=== PATIENT | male | born 1995 | race Caucasian/White ===

== ENCOUNTER 2017-05-17 01:14 | Emergency (ER) | payer BC ==
[~2017-05-17] VITALS: Ht 185.4 cm; Wt 76.0 kg
[~2017-05-17 01:14] MED LIST: METO25TA56 PO
[2017-05-17 01:34] VITALS: Ht 185.4 cm; Wt 76.0 kg
[2017-05-17] MEDS ORDERED: SODIUM CHLORIDE 0.9% 1000ML 1,000 ML IV STA (01:51)
[2017-05-17 02:06] LABS: HEMATOCRIT 45.1 % (42-52); MEAN CELL VOLUME 81.7 fL (80-100); MEAN CORPUSCULAR HEMOGLOBIN 29.9 pg (25-34); MEAN CORPUSCULAR HGB CONC 36.6 g/dl (32-36); MEAN PLATELET VOLUME 10.3 fL (7.4-10.4); PLATELET COUNT 241 K/uL (130-400); RED BLOOD COUNT 5.52 M/uL (4.7-6.1); WHITE BLOOD COUNT 7.08 K/uL (4.8-10.8)
[2017-05-17 02:15] LABS: BENZODIAZEPINE, URINE NEG (NEG); COCAINE,URINE NEG (NEG); PHENCYCLIDINE, URINE NEG (NEG)
[2017-05-17 02:25] LABS: BUN/CREATININE RATIO 15.5 (10-20); CALCIUM 9.3 mg/dl (8.5-10.1); CREATININE 1.2 mg/dl (0.60-1.40); POTASSIUM 3.6 mmol/L (3.5-5.1)
[2017-05-17 02:35] LABS: THYROID STIMULATING HORMONE 1.75 uIu/ml (0.300-4.500)
[2017-05-17] MEDS ORDERED: CLON1TAB3 PO (02:41)
[2017-05-17] MEDS ORDERED: PARO1TAB27 PO (02:41)
[2017-05-17 02:50] LABS: ACETAMINOPHEN < 2 ug/ml (10-30)
[2017-05-17] MEDS ORDERED: NICOTINE 14 MG/24 HR TDSY ONE (03:19)
[2017-05-17] MEDS ORDERED: hydrOXYzine HCL 25 MG TAB PO STA (03:42)
--- NOTE | 2017-05-17 06:28 | EMERGENCY ROOM VISIT NOTE ---
History Report prepared by Branden: Lottie Kim Under the Supervision of: Dr. Vinita Rios D.O. First contact with patient: 01:36 Chief Complaint: MENTAL HEALTH EVALUATION Stated Complaint: DEPRESSION,MED CHANGE History of Present Illness The patient is a 22 year old male who presents to the Emergency Room with complaints of worsening depression starting yesterday. The patient has a history of depression and anxiety. He was switched from Ativan to Clonazepam 5 days ago when he saw his psychiatrist. He has been feeling more depressed since then. He has been staying in bed and not eating and drinking. Yesterday, he was thinking about suicide. He had a plan to overdose on clonazepam. He also had similar thoughts today. He has not had thoughts of killing himself before. He spoke with his parents who recommended he come to the ED. His mother had a history of depression and anxiety when she was a teenager. He denies any alcohol or drug use. No events occurred which caused his depression to worsen. He reports feeling out of body, where he feels like he is floating and watching things happen. He denies any auditory or visual hallucinations. He denies any vomiting, abdominal pain, urinary symptoms, or change in bowel movement. He has never had inpatient psychiatric care before. He is currently willing to receive inpatient care. He is a [employer] student. Source of History: patient, parent Onset: yesterday Position: other (mental health) Quality: other (depression) Timing: worsening Associated Symptoms: No vomiting, No abdominal pain, No urinary symptoms Note: Pt reports suicidal ideation, feeling out of body. Pt denies hallucination. Review of Systems See HPI for pertinent positives & negatives. A total of 10 systems reviewed and were otherwise negative. Past Medical & Surgical Medical Problems: (1) Anxiety (2) Depression Family History Depression Social History Smoking Status: Former Smoker Drug Use: none Marital Status: single Occupation Status: [employer] student Current/Historical Medications Scheduled Clonazepam (Klonopin), 1 MG PO BID Paroxetine (Paxil), 20 MG PO DAILY Allergies Coded Allergies: No Known Allergies (Unverified , 09/11/15) Physical Exam Vital Signs Date Time Temp Pulse Resp B/P (MAP) Pulse Ox O2 Delivery O2 Flow Rate FiO2 05/17/17 02:41 70 16 109/67 97 Room Air 05/17/17 01:34 36.6 107 16 131/83 97 Room Air Physical Exam HEENT: Head - normocephalic and atraumatic Pupils are equal, round, and reactive to light. Extraocular eye muscles are intact, and sclera are anicteric. Nose - moist nasal mucosa without discharge. Mouth - moist buccal mucosa. Oropharynx is nonerythematous and there is no tonsillar exudate or edema noted. Neck: Supple; no JVD, nuchal rigidity, cervical lymphadenopathy. Heart: Regular rate and rhythm. There is a normal S1 and S2 with no murmurs, clicks, or gallops appreciated. Lungs: Clear to auscultation bilaterally with no wheezes, rales, or rhonchi. Abdomen: Soft, completely nontender, nondistended, with good bowel sounds. There are no palpable pulsatile masses or hepatosplenomegaly. There is no guarding, rigidity, or rebound noted. Extremities: No evidence of cyanosis, clubbing, or edema. There are easily palpable peripheral pulses. Skin: warm and dry with good turgor and no rashes. Psych: Flat affect, admits to suicidal ideation with a plan to overdose. Medical Decision & Procedures Laboratory Results 05/17/17 01:53 05/17/17 01:53 Test 05/17/17 01:45 05/17/17 01:53 Urine Opiates Screen NEG (NEG) Urine Methadone, Qualitative NEG (NEG) Urine Barbiturates NEG (NEG) Urine Phencyclidine (PCP) Level NEG (NEG) Ur Amphetamine/Methamphetamine NEG (NEG) MDMA (Ecstasy) Screen NEG (NEG) Urine Benzodiazepines Screen NEG (NEG) Urine Cocaine Metabolite NEG (NEG) Urine Marijuana (THC) NEG (NEG) Red Blood Count 5.52 M/uL (4.7-6.1) Mean Corpuscular Volume 81.7 fL (80-100) Mean Corpuscular Hemoglobin 29.9 pg (25-34) Mean Corpuscular Hemoglobin Concent 36.6 g/dl (32-36) RDW Standard Deviation 35.5 fL (36.4-46.3) RDW Coefficient of Variation 12.0 % (11.5-14.5) Mean Platelet Volume 10.3 fL (7.4-10.4) Anion Gap 11.0 mmol/L (3-11) Est Creatinine Clear Calc Drug Dose 105.6 ml/min Estimated GFR () 100.3 Estimated GFR (Non- 86.5 BUN/Creatinine Ratio 15.5 (10-20) Calcium Level 9.3 mg/dl (8.5-10.1) Thyroid Stimulating Hormone (TSH) 1.750 uIu/ml (0.300-4.500) Salicylates Level < 1.7 mg/dl (2.8-20) Acetaminophen Level < 2 ug/ml (10-30) Ethyl Alcohol mg/dL < 3.0 mg/dl (0-3) Laboratory results per my review. Medications Administered Medications (Trade) Dose Ordered Sig/Jennifer Route Start Time Stop Time Status Last Admin Dose Admin Sodium Chloride 1,000 ml @ 999 mls/hr Q1H1M STAT IV 05/17/17 01:51 05/17/17 02:51 DC 05/17/17 01:57 999 MLS/HR Nicotine (Nicoderm Cq 14MG Patch) 1 patch STK-MED ONCE .ROUTE 05/17/17 03:19 05/17/17 03:20 DC 05/17/17 03:19 1 PATCH Hydroxyzine HCl (Vistaril Tab) 25 mg NOW STAT PO 05/17/17 03:42 05/17/17 03:43 DC 05/17/17 03:42 25 MG Procedure Medications: NSS 1000 ml @ 999 mls/hr IV, Nicotine 1 patch TOP, Vistaril Tab 25 mg PO. ED Course 0144: The patient was evaluated in room A7. A complete history and physical examination were performed. Nursing notes and previous electronic medical records were reviewed. IV lock was established and labs were drawn as above. 0151: NSS 1000 ml @ 999 mls/hr IV. 0319: Nicotine 1 patch TOP. 0320: 3 [facility] is evaluating the patient. 0341: The 201 has been signed. 0342: Vistaril Tab 25 mg PO for anxiety. 0410: The patient has been referred to the [facility]. 0515: The patient has been accepted to the [facility]. Transport will come to pick him up at 0830. Medical Decision The patient is a 22 year old male who presents to the ED with depression. Differential diagnosis includes mood disorder, thought disorder, suicidal ideation, dehydration, malnutrition. I attest that I have personally reviewed the patient's current medication list. Patient was found to have normal blood pressure on screening and does not require follow-up. Labs: normal WBC, normal H&H, normal TSH and glucose, normal renal function, negative tox screen, negative alcohol, negative Tylenol and aspirin. The patient presents to the emergency department with suicidal plan to overdose. The parents state that he has not been functioning for the past couple of days. He does not eat or drink. The patient showed no significant signs of dehydration, however he was given 1 L of IV normal saline solution. He was willing to admit himself voluntarily for inpatient psychiatric care. He' s never had a previous admission. Impression Primary Impression: Suicidal ideation Scribe Attestation The scribe's documentation has been prepared under my direction and personally reviewed by me in its entirety. I confirm that the note above accurately reflects all work, treatment, procedures, and medical decision making performed by me. Departure Information Dispostion Transfer Acute Care Facility Referrals Devyn Webb D.O. (PCP) Patient Instructions My [facility]
[2017-05-17 07:38] VITALS: TEMP 36.6
[2017-05-17] MEDS ORDERED: PAROXETINE 20 MG TAB PO ONE (08:00)
[2017-05-17 08:57] VITALS: BP 123/67; PULSE 69; O2SAT 95
[2017-05-17] MEDS ORDERED: NICOTINE 14 MG/24 HR TDSY TD SCH (09:00)
== END 2017-05-17 08:59 ==
LOC: C.EDB 01:16 → C.EDA 08:59
DX: R45.851 Suicidal ideations (principal); F32.9 Major depressive disorder, single episode, unspecified; F41.9 Anxiety disorder, unspecified; Z87.891 Personal history of nicotine dependence; Z79.899 Other long term (current) drug therapy

== ENCOUNTER → 2017-05-31 | Outpatient (CLI) | payer BC ==
[~2017-05-31] MED LIST changes: +ATV/1 PO; +CLON1TAB3 PO; +CTP/1 PO; +DIVA250T PO; +DPKSR/500 PO; +GABA1CAP PO; -METO25TA56 PO; +PARO1TAB27 PO; +SERT1TAB68 PO; +SERT50TA PO
[2017-05-31 09:03] LABS: BASO % 0.3 %; BASO ABS # 0.02 K/uL (0-0.2); COMPLETE YES; EOS % 5.7 %; HEMATOCRIT 48.1 % (42-52); IG% 0.3 %; LYMPH ABS # 1.32 K/uL (1.2-3.4); MEAN CELL VOLUME 85.9 fL (80-100); MEAN CORPUSCULAR HEMOGLOBIN 29.1 pg (25-34); MEAN CORPUSCULAR HGB CONC 33.9 g/dl (32-36); MEAN PLATELET VOLUME 10.9 fL (7.4-10.4); MONO % 9.7 %; PLATELET COUNT 221 K/uL (130-400)
== END | disposition home or self-care (01) ==
LOC: C.LAB 07:46
PROVIDERS: ATTEND Psychiatry & Neurology Psychiatry
DX: F41.0 Panic disorder [episodic paroxysmal anxiety] (principal); F32.9 Major depressive disorder, single episode, unspecified; Z51.81 Encounter for therapeutic drug level monitoring; Z79.899 Other long term (current) drug therapy

== ENCOUNTER → 2017-06-25 | Outpatient (CLI) | payer BC ==
[2017-06-25 09:37] LABS: BASO % 0.5 %; BASO ABS # 0.02 K/uL (0-0.2); COMPLETE YES; EOS % 11.6 %; HEMATOCRIT 43.8 % (42-52); IG% 0.3 %; LYMPH % 38.4 %; LYMPH ABS # 1.53 K/uL (1.2-3.4); MEAN CELL VOLUME 85.2 fL (80-100); MEAN CORPUSCULAR HEMOGLOBIN 30.4 pg (25-34); MEAN CORPUSCULAR HGB CONC 35.6 g/dl (32-36); MEAN PLATELET VOLUME 11.5 fL (7.4-10.4); NEUT % 40.2 %; PLATELET COUNT 178 K/uL (130-400); RED BLOOD COUNT 5.14 M/uL (4.7-6.1); WHITE BLOOD COUNT 3.98 K/uL (4.8-10.8)
[2017-06-25 10:15] LABS: ALT/SGPT 17 U/L (12-78); AST/SGOT 14 U/L (15-37); BLOOD UREA NITROGEN 14 mg/dl (7-18); BUN/CREATININE RATIO 12.7 (10-20); CALCIUM 9.2 mg/dl (8.5-10.1); CARBON DIOXIDE 32 mmol/L (21-32); CHLORIDE 105 mmol/L (98-107); CHOLESTEROL 142 mg/dl (0-200); GLUCOSE 85 mg/dl (70-99); POTASSIUM 3.8 mmol/L (3.5-5.1); SODIUM 139 mmol/L (136-145); TRIGLYCERIDES 86 mg/dl (0-150); VERY LOW DENSITY LIPOPROT CALC 17 mg/dl
[2017-06-25 10:27] LABS: ALB/GLOB RATIO 1.2 (0.9-2); ALKALINE PHOSPHATASE 66 U/L (45-117); CHOLESTEROL/HDL RATIO 3.6; HDL CHOLESTEROL 40 mg/dl; LDL CHOLESTEROL CALCULATED 85 mg/dl; THYROID STIMULATING HORMONE 0.932 uIu/ml (0.300-4.500)
[2017-06-25 10:41] LABS: ESTIMATED AVERAGE GLUCOSE 94 mg/dl; HA1C FLAG Normal (Normal)
== END | disposition home or self-care (01) ==
LOC: C.LAB 07:54
PROVIDERS: ATTEND Physician Assistant
DX: Z79.899 Other long term (current) drug therapy (principal)

== ENCOUNTER 2017-07-28 10:52 | Inpatient (IN) | payer BC ==
[~2017-07-28] VITALS: Ht 188 cm; Wt 79.6 kg
[~2017-07-28 10:52] MED LIST changes: -ATV/1 PO; -CTP/1 PO; -DIVA250T PO; -DPKSR/500 PO; -GABA1CAP PO; -SERT1TAB68 PO; -SERT50TA PO
[2017-07-28 11:45] LABS: URINE APPEARANCE CLEAR (CLEAR); URINE BILIRUBIN NEG (NEG); URINE COLOR DK YELLOW; URINE NITRITE NEG (NEG); URINE SPECIFIC GRAVITY 1.025 (1.000-1.030); UROBILINOGEN POS (NEG); ZZUR CULT IF INDIC CLEAN CATCH NO
[2017-07-28 11:46] LABS: MANUAL MICROSCOPIC REQUIRED? NO; REVIEW REQ? NO
[2017-07-28] MEDS ORDERED: DPKSR/500 PO (11:51)
[2017-07-28] MEDS ORDERED: ATV/1 PO (11:51)
[2017-07-28] MEDS ORDERED: GABA1CAP PO (11:51)
[2017-07-28] MEDS ORDERED: CTP/1 PO (11:51)
[2017-07-28] MEDS ORDERED: SERT50TA PO (11:51)
[2017-07-28 12:12] LABS: BENZODIAZEPINE, URINE NEG (NEG); COCAINE,URINE NEG (NEG); PHENCYCLIDINE, URINE NEG (NEG)
[2017-07-28] MEDS ORDERED: NICOTINE 14 MG/24 HR TDSY ONE (12:39)
[2017-07-28] MEDS ORDERED: NURSING VERBAL MED ORDER ONE ×3 (12:45→21:45)
[2017-07-28 12:52] LABS: BASO % 0.9 %; BASO ABS # 0.03 K/uL (0-0.2); COMPLETE YES; EOS % 4.9 %; HEMATOCRIT 46.3 % (42-52); IG% 0.3 %; LYMPH % 25.5 %; LYMPH ABS # 0.89 K/uL (1.2-3.4); MEAN CELL VOLUME 86.1 fL (80-100); MEAN CORPUSCULAR HEMOGLOBIN 29.4 pg (25-34); MEAN CORPUSCULAR HGB CONC 34.1 g/dl (32-36); MEAN PLATELET VOLUME 10.6 fL (7.4-10.4); NEUT % 60.4 %; PLATELET COUNT 218 K/uL (130-400); RED BLOOD COUNT 5.38 M/uL (4.7-6.1); WHITE BLOOD COUNT 3.49 K/uL (4.8-10.8)
[2017-07-28 13:19] LABS: ACETAMINOPHEN < 2 ug/ml (10-30)
--- NOTE | 2017-07-28 13:21 | EMERGENCY ROOM VISIT NOTE ---
History Report prepared by Branden: Lottie Kim Under the Supervision of: Dr. Immanuel Martínez M.D. First contact with patient: 11:32 Chief Complaint: MENTAL HEALTH EVALUATION Stated Complaint: SUICIDAL IDEATIONS History of Present Illness The patient is a 22 year old male who presents to the Emergency Room with complaints of worsening suicidal ideation starting yesterday. The patient has a history of suicidal ideation and has overdosed in the past. He has had inpatient psychiatric care before. Over the past day, he has had more thoughts of hurting himself. He is also hearing voices. He hears a whisper, but cannot make out any words. He currently does not have a plan to harm himself. He notes some cough, congestion, and left abdominal pain. He denies any fever, chills, nausea, vomiting, diarrhea, back pain, or urinary symptoms. He denies any recent changes in medication. Source of History: patient Onset: yesterday Position: other (mental health) Quality: other (suicidal ideation) Timing: worsening Associated Symptoms: + cough, + abdominal pain, No fevers, No chills, No nausea, No vomiting, No back pain, No diarrhea, No urinary symptoms Note: Pt reports congestion. Review of Systems See HPI for pertinent positives and negatives. A total of ten systems were reviewed and were otherwise negative. Past Medical & Surgical Medical Problems: (1) Anxiety (2) Depression (3) Suicidal ideation Family History Depression Social History Smoking Status: Current Every Day Smoker Drug Use: none Marital Status: single Occupation Status: [employer] student Current/Historical Medications Scheduled Clonidine Hcl (Catapres), 0.5 TAB PO BID Divalproex Sodium (Depakote Etended-Release), 500 MG PO BID Gabapentin (Neurontin), 100 MG PO TID Sertraline Hcl (Zoloft), 75 MG PO DAILY Scheduled PRN Lorazepam (Ativan), 1 MG PO DAILY PRN for Anxiety Allergies Coded Allergies: No Known Allergies (Unverified , 07/28/17) Physical Exam Vital Signs Date Time Temp Pulse Resp B/P (MAP) Pulse Ox O2 Delivery O2 Flow Rate FiO2 07/28/17 12:42 93 16 146/74 98 Room Air 07/28/17 10:56 36.8 118 20 125/76 96 Room Air Physical Exam GENERAL: Awake, alert, well-appearing, in no distress HENT: Normocephalic, atraumatic. Oropharynx unremarkable. EYES: Normal conjunctiva. Sclera non-icteric. NECK: Supple. No nuchal rigidity. FROM. No JVD. RESPIRATORY: Clear to auscultation. CARDIAC: Regular rate, normal rhythm. Extremities warm and well perfused. Pulses equal. ABDOMEN: Soft, non-distended. No tenderness to palpation. No rebound or guarding. No masses. RECTAL: Deferred. MUSCULOSKELETAL: Chest examination reveals no tenderness. The back is symmetrical on inspection without obvious abnormality. There is no CVA tenderness to palpation. No joint edema. LOWER EXTREMITIES: Calves are equal size bilaterally and non-tender. No edema. No discoloration. NEURO: Normal sensorium. No sensory or motor deficits noted. SKIN: No rash or jaundice noted. Medical Decision & Procedures Laboratory Results 07/28/17 12:07 Red Blood Count 5.38, Mean Corpuscular Volume 86.1, Mean Corpuscular Hemoglobin 29.4, Mean Corpuscular Hemoglobin Concent 34.1, Mean Platelet Volume 10.6, Neutrophils (%) (Auto) 60.4, Lymphocytes (%) (Auto) 25.5, Monocytes (%) (Auto) 8.0, Eosinophils (%) (Auto) 4.9, Basophils (%) (Auto) 0.9, Neutrophils # (Auto) 2.11, Lymphocytes # (Auto) 0.89, Monocytes # (Auto) 0.28, Eosinophils # (Auto) 0.17, Basophils # (Auto) 0.03 07/28/17 12:07 Test 07/28/17 11:16 07/28/17 12:07 Urine Color DK YELLOW Urine Appearance CLEAR (CLEAR) Urine pH 7.0 (4.5-7.5) Urine Specific [place] 1.025 (1.000-1.030) Urine Protein NEG (NEG) Urine Glucose (UA) NEG (NEG) Urine Ketones TRACE (NEG) Urine Occult Blood NEG (NEG) Urine Nitrite NEG (NEG) Urine Bilirubin NEG (NEG) Urine Urobilinogen POS (NEG) Urine Leukocyte Esterase NEG (NEG) Urine Opiates Screen NEG (NEG) Urine Methadone, Qualitative NEG (NEG) Urine Barbiturates NEG (NEG) Urine Phencyclidine (PCP) Level NEG (NEG) Ur Amphetamine/Methamphetamine NEG (NEG) MDMA (Ecstasy) Screen NEG (NEG) Urine Benzodiazepines Screen NEG (NEG) Urine Cocaine Metabolite NEG (NEG) Urine Marijuana (THC) NEG (NEG) White Blood Count 3.49 K/uL (4.8-10.8) Red Blood Count 5.38 M/uL (4.7-6.1) Hemoglobin 15.8 g/dL (14.0-18.0) Hematocrit 46.3 % (42-52) Mean Corpuscular Volume 86.1 fL (80-100) Mean Corpuscular Hemoglobin 29.4 pg (25-34) Mean Corpuscular Hemoglobin Concent 34.1 g/dl (32-36) Platelet Count 218 K/uL (130-400) Mean Platelet Volume 10.6 fL (7.4-10.4) Neutrophils (%) (Auto) 60.4 % Lymphocytes (%) (Auto) 25.5 % Monocytes (%) (Auto) 8.0 % Eosinophils (%) (Auto) 4.9 % Basophils (%) (Auto) 0.9 % Neutrophils # (Auto) 2.11 K/uL (1.4-6.5) Lymphocytes # (Auto) 0.89 K/uL (1.2-3.4) Monocytes # (Auto) 0.28 K/uL (0.11-0.59) Eosinophils # (Auto) 0.17 K/uL (0-0.5) Basophils # (Auto) 0.03 K/uL (0-0.2) RDW Standard Deviation 38.9 fL (36.4-46.3) RDW Coefficient of Variation 12.5 % (11.5-14.5) Immature Granulocyte % (Auto) 0.3 % Immature Granulocyte # (Auto) 0.01 K/uL (0.00-0.02) Anion Gap 8.0 mmol/L (3-11) Est Creatinine Clear Calc Drug Dose 136.2 ml/min Estimated GFR () 125.0 Estimated GFR (Non- 107.9 BUN/Creatinine Ratio 15.8 (10-20) Calcium Level 9.2 mg/dl (8.5-10.1) Total Bilirubin 0.9 mg/dl (0.2-1) Aspartate Amino Transf (AST/SGOT) 11 U/L (15-37) Alanine Aminotransferase (ALT/SGPT) 14 U/L (12-78) Alkaline Phosphatase 72 U/L (45-117) Total Protein 7.4 gm/dl (6.4-8.2) Albumin 4.1 gm/dl (3.4-5.0) Globulin 3.3 gm/dl (2.5-4.0) Albumin/Globulin Ratio 1.2 (0.9-2) Thyroid Stimulating Hormone (TSH) 0.872 uIu/ml (0.300-4.500) Salicylates Level < 1.7 mg/dl (2.8-20) Acetaminophen Level < 2 ug/ml (10-30) Valproic Acid (Depakene) Level 59 mcg/ml (50-100) Ethyl Alcohol mg/dL < 3.0 mg/dl (0-3) Laboratory results reviewed by me Medications Administered Medications (Trade) Dose Ordered Sig/Jennifer Route Start Time Stop Time Status Last Admin Dose Admin Nicotine (Nicoderm Cq 14MG Patch) 1 patch STK-MED ONCE .ROUTE 07/28/17 12:39 07/28/17 12:40 DC 07/28/17 12:44 1 PATCH Hydroxyzine HCl (Vistaril Tab) 50 mg HSZ PRN PO 07/28/17 14:45 08/27/17 14:44 07/28/17 23:31 50 MG ED Course 1151: The patient was evaluated in room A5. A complete history and physical exam was performed. 1239: Nicoderm 14 mg 1 patch TD. 1353: The patient has been medically cleared. The psych case preparer and liner will evaluate the patient. 1524: The patient has been accepted to [address] [place] [address] for further management. Medical Decision I reviewed the patient's past medical history, medications, and the nursing notes as described above. Differential diagnosis: suicidal ideation, psychosis, dehydration, medication adverse effect. Patient is a 22-year-old gentleman with a past medical history of suicidal ideation and bipolar disorder is to emergency department with worsening suicidal ideation for the past 2 weeks per history of present illness. Arrives with father at bedside. Seeking help voluntarily. Denies any attempts at self- harm. Denies any drug use or alcohol use. On arrival the patient is in no acute distress, afebrile stable vital signs. Exam is unremarkable. Labs otherwise unremarkable. He was medically cleared evaluate by the psychiatric liaison who referred the patient for admission and was accepted to . Medication Reconcilliation Current Medication List: was personally reviewed by me Blood Pressure Screening Patient's blood pressure: Normal blood pressure Blood pressure disposition: Did not require urgent referral Impression Primary Impression: Suicidal ideation Scribe Attestation The scribe's documentation has been prepared under my direction and personally reviewed by me in its entirety. I confirm that the note above accurately reflects all work, treatment, procedures, and medical decision making performed by me. Departure Information Dispostion Mental Health Acute Care Referrals Devyn Webb, Gopi.O. (PCP) Forms HOME CARE DOCUMENTATION FORM, IMPORTANT VISIT INFORMATION Patient Instructions My [facility]
[2017-07-28 13:26] LABS: ALB/GLOB RATIO 1.2 (0.9-2); BUN/CREATININE RATIO 15.8 (10-20); CALCIUM 9.2 mg/dl (8.5-10.1); POTASSIUM 4.1 mmol/L (3.5-5.1)
[2017-07-28 13:38] LABS: THYROID STIMULATING HORMONE 0.872 uIu/ml (0.300-4.500)
[2017-07-28] MEDS ORDERED: ACETAMINOPHEN 325 MG TAB PO PRN (14:45)
[2017-07-28] MEDS ORDERED: hydrOXYzine HCL 25 MG TAB PO PRN (14:45)
[2017-07-28] MEDS ORDERED: MAGNESIUM HYDROXIDE SUSP 30 ML UDC PO PRN (14:45)
[2017-07-28] MEDS ORDERED: BISMUTH SUBSALICYLATE PER ML OMNICELL CHARGE PO PRN (14:45)
[2017-07-28] MEDS ORDERED: SODIUM CHLORIDE 0.65% NA SOLN 45 ML (OCEAN) PRN (14:45)
[2017-07-28] MEDS ORDERED: ALUMINUM/MAGNESIUM SUSP 30 ML UDC PO PRN (14:45)
[2017-07-28 15:43] VITALS: O2SAT 95
[2017-07-28 17:02] VITALS: BP 99/64; PULSE 52; TEMP 36.7; Ht 188 cm; Wt 79.6 kg
[2017-07-28] MEDS: NICOTINE 21 MG/24 HR TDSY TD SCH (17:57)
[2017-07-28] MEDS ORDERED: DIVALPROEX 500 MG EXTENDED RELEASE TAB PO SCH (21:00)
[2017-07-28] MEDS: GABAPENTIN 100 MG CAP PO SCH (21:06)
[2017-07-28 21:09] VITALS: BP 109/66; PULSE 56
[2017-07-28] MEDS: CLONIDINE HCL 0.1 MG TAB PO SCH (21:09)
[2017-07-28] MEDS: NICOTINE POLACRILEX 2 MG GUM MT PRN (21:55)
[2017-07-28] MEDS: LORAZEPAM 1 MG TAB PO PRN (23:31)
[2017-07-28] MEDS: hydrOXYzine HCL 25 MG TAB PO PRN (23:31)
[2017-07-29] MEDS: hydrOXYzine HCL 25 MG TAB PO PRN ×2 (00:02→21:16)
[2017-07-29 06:51] VITALS: BP_SYST 105; BP_SYST 97; BP_DIAS 62; PULSE 64; PULSE 92; TEMP 36.8
[2017-07-29] MEDS ORDERED: SERTRALINE HCL 50 MG TAB PO SCH (09:00)
[2017-07-29] MEDS ORDERED: NICOTINE 14 MG/24 HR TDSY TD SCH (09:00)
[2017-07-29] MEDS: CLONIDINE HCL 0.1 MG TAB PO SCH ×2 (09:56→21:16)
[2017-07-29] MEDS: GABAPENTIN 100 MG CAP PO SCH ×3 (09:57→21:16)
[2017-07-29] MEDS: NICOTINE 21 MG/24 HR TDSY TD SCH (09:58)
[2017-07-29] MEDS: NICOTINE POLACRILEX 2 MG GUM MT PRN ×4 (10:00→18:53)
[2017-07-29 10:09] VITALS: BP 118/80; PULSE 86
--- NOTE | 2017-07-29 13:13 | Psychiatric History & Physical ---
History Date of Service Jul 29, 2017. 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 He is admitted voluntarily. Information is gathered from the patient and considered to be reliable. Chief Complaint "I stopped taking my meds regularly". History of Present Illness The patient is a 22-year-old male who has received treatment for depression and bipolar disorder in the past. He currently sees Dillon CEE at [facility] but has only seen her one time. He had previously seen Dr. Jones but did not like the medications he prescribed, feeling that he had side effects. Janes says that over recent years he feels that he has had manic episodes which include periods of elevated energy, talking fast and high productivity that last anywhere from one day to 8 days. These alternate with periods of depression. He was hospitalized at the [facility] and May following a depression with suicide attempt by overdose. Prior to going to the [facility] he had had several trials of SSRIs which he did not necessarily find helpful over time. After discharge from [facility] he was on Depakote, Zoloft and clonidine which he found helpful while he was taking them. He took his meds regularly for about a month after discharge but upon returning to classes this fall, he found that he was forgetting to take his medications up to 3 days a week. He started feeling increasingly depressed and 2 days ago began having suicidal thoughts. He talked with several of his friends who have had some experience with depression and when he mentioned the suicidal thoughts, they immediately brought him to the emergency room for evaluation. He also admits that several days ago he took many Ativan although he cannot say how many but at least greater than 5, in an attempt to "feel better". He said he would take 1 and when he didn't feel better he would take another one and this escalated over the course of several hours until he had taken many pills. He denies that this was done in an attempt to kill himself. Today he continues to feel depressed and admits to suicidal thoughts with a long -standing planned overdose. He reports poor sleep with both difficulty falling asleep as well as staying asleep getting only about 4 hours of sleep per night. This is been going on for years. His appetite has been down and he's experienced about a 10 pound weight loss over the last 1-1/2 weeks or more. He also admits to some eating disordered behaviors, saying that he is worried about his body image and has a past history of intentionally restricting in order to lose weight. He says the last time he intentionally restricted in this context was about 4 months ago. He reports low energy. He denies significant anxiety although does endorse some OCD symptoms. He says that he has had a need to correct people but has controlled that currently and only expresses that to his parents. He also feels compelled to wear earphones, for example on his way to and from class and on the bus. He describes the inside of his head as a "crowded cafeteria" and to some degree he uses the earphones to drown them out. He denies clear auditory or visual hallucinations but describes times when he sees "patterns", for example looking at the couches in the day room he sees the stripes and thinks that they may be moving and at times will look at shadows on the wall and they appear like dancing shadows. He also has times when he sees "are as around objects" and sometimes when he thinks he hears whispering but no clear voices. He also talks about "questioning reality", for example saying that he will experience something and then will have to stop and ask himself if that experience was real. Past Psychiatric History Current OP Treatment: psychiatrist Prior OP Treatment: psychiatrist (Dr. Tiwari) Prior Psych Hospitalizations: [facility] (May 2017) Access to a Gun: No Suicide Attempts: Yes (2 attempts by overdose) Past Medication Trials 1. Klonopin increasing depression and suicidality 2. Paxil worked for a while 3. Lexapro --didn't work 4. Prozac-worked for a while then wore off Past Medical/Surgical History History of Concussion/Seizure: No (1) Fibromyalgia (2) Absence seizure Allergies Allergies: Coded Allergies: No Known Allergies (Unverified , 07/28/17) Home Medications Scheduled Clonidine Hcl (Catapres), 0.5 TAB PO BID Divalproex Sodium (Depakote Etended-Release), 500 MG PO BID Gabapentin (Neurontin), 100 MG PO TID Sertraline Hcl (Zoloft), 75 MG PO DAILY Scheduled PRN Lorazepam (Ativan), 1 MG PO DAILY PRN for Anxiety Family History Depression History of Suicide: No History of Substance Abuse: Yes (multiple maternal cousins with drug and alcohol problems, maternal grandfather with a history of alcohol dependence) Psychiatric History: Yes (both sides of the family have members with depression , anxiety, delusions and bipolar disorder) Alcohol Use Alcohol Use In Past 12 Months: Yes ("occassional drinking, pt last drank "1 week ago, 1/2 a drink") AUDIT Total Score: 2 Smoking Use Smoking Status: Current Every Day Smoker Smokes up to a pack a day Substance History The patient has consumed alcohol in the past but generally did not feel well and felt guilty afterwards and so currently does not drink Personal History Lives in: [place] [facility] [employer] Childhood: Raised by both parents. Mother is a teacher, father is a statistical financial analyst in the College of [employer] at [employer]. He is an only child. Education: started college (he attended [employer] in [employer] for middle school and high school. 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 with a current GPA of 3.2) Work History: Does not work outside of school Relationship History: never Children: none Spiritual Affiliation: none Legal History: none Psychological Trauma History: Denies Hx Traumatic Event, Emotional Abuse Review of Systems Constitutional: denies no symptoms reported, denies see HPI, denies chills, denies diaphoresis, denies fever, denies malaise, denies weakness, denies other Eyes: denies: no symptoms, as stated in HPI, eye pain, tearing, itching, redness, discharge, double vision, visual changes, blurred vision, photophobia, other ENT: reports: other (reports some difficulty swallowing saying he has to make a conscious effort to swallow liquids and solids) Cardiovascular: reports: chest tightness (experiences both at rest and with exertion, denies jaw or left arm pain, occurs with anxiety) Respiratory: reports: short of breath Gastrointestinal: denies no symptoms reported, denies see HPI, denies abdominal pain, denies constipation, denies diarrhea, denies nausea, denies vomiting, denies other Genitourinary - Male: denies: no symptoms, see HPI, rash, amenorrhea, penile itching, penile discharge, testicular pain, testicular swelling, impotence, other Musculoskeletal: other (has pain "all over" rated 7 out of 10 secondary to fibromyalgia) Integumentary: other (small reddened area on left index finger from a self- inflicted burn) Neurologic: reports: numbness (occasionally experiences numbness and tingling on his left lateral thigh that he has been experiencing since the age of 15 and was told he had a peripheral neuropathy) Endocrine: denies: no symptoms, as stated in HPI, cold intolerance, heat intolerance, hair changes, goiter, polydipsia, polyuria, skin changes, other Hematologic / Lymphatic: denies: no symptoms, as stated in HPI, abnormal clotting, adenopathy, anemia, easy bleeding, easy bruising, gums bleeding, petechiae, other Examination Physical Examination Exam performed by Dr. price in the emergency Department has been reviewed and accepted as medical clearance for our unit Vital Signs Vital Signs Past 12 Hours Date Time Temp Pulse Resp B/P (MAP) Pulse Ox O2 Delivery O2 Flow Rate FiO2 07/29/17 10:09 86 16 118/80 07/29/17 06:51 36.8 64 16 105/62 92 97/62 Laboratory Results 07/28/17 12:07 Red Blood Count 5.38, Mean Corpuscular Volume 86.1, Mean Corpuscular Hemoglobin 29.4, Mean Corpuscular Hemoglobin Concent 34.1, Mean Platelet Volume 10.6, Neutrophils (%) (Auto) 60.4, Lymphocytes (%) (Auto) 25.5, Monocytes (%) (Auto) 8.0, Eosinophils (%) (Auto) 4.9, Basophils (%) (Auto) 0.9, Neutrophils # (Auto) 2.11, Lymphocytes # (Auto) 0.89, Monocytes # (Auto) 0.28, Eosinophils # (Auto) 0.17, Basophils # (Auto) 0.03 07/28/17 12:07 Test 07/28/17 11:16 07/28/17 12:07 Urine Color DK YELLOW Urine Appearance CLEAR (CLEAR) Urine pH 7.0 (4.5-7.5) Urine Specific [place] 1.025 (1.000-1.030) Urine Protein NEG (NEG) Urine Glucose (UA) NEG (NEG) Urine Ketones TRACE (NEG) Urine Occult Blood NEG (NEG) Urine Nitrite NEG (NEG) Urine Bilirubin NEG (NEG) Urine Urobilinogen POS (NEG) Urine Leukocyte Esterase NEG (NEG) Urine Opiates Screen NEG (NEG) Urine Methadone, Qualitative NEG (NEG) Urine Barbiturates NEG (NEG) Urine Phencyclidine (PCP) Level NEG (NEG) Ur Amphetamine/Methamphetamine NEG (NEG) MDMA (Ecstasy) Screen NEG (NEG) Urine Benzodiazepines Screen NEG (NEG) Urine Cocaine Metabolite NEG (NEG) Urine Marijuana (THC) NEG (NEG) White Blood Count 3.49 K/uL (4.8-10.8) Red Blood Count 5.38 M/uL (4.7-6.1) Hemoglobin 15.8 g/dL (14.0-18.0) Hematocrit 46.3 % (42-52) Mean Corpuscular Volume 86.1 fL (80-100) Mean Corpuscular Hemoglobin 29.4 pg (25-34) Mean Corpuscular Hemoglobin Concent 34.1 g/dl (32-36) Platelet Count 218 K/uL (130-400) Mean Platelet Volume 10.6 fL (7.4-10.4) Neutrophils (%) (Auto) 60.4 % Lymphocytes (%) (Auto) 25.5 % Monocytes (%) (Auto) 8.0 % Eosinophils (%) (Auto) 4.9 % Basophils (%) (Auto) 0.9 % Neutrophils # (Auto) 2.11 K/uL (1.4-6.5) Lymphocytes # (Auto) 0.89 K/uL (1.2-3.4) Monocytes # (Auto) 0.28 K/uL (0.11-0.59) Eosinophils # (Auto) 0.17 K/uL (0-0.5) Basophils # (Auto) 0.03 K/uL (0-0.2) RDW Standard Deviation 38.9 fL (36.4-46.3) RDW Coefficient of Variation 12.5 % (11.5-14.5) Immature Granulocyte % (Auto) 0.3 % Immature Granulocyte # (Auto) 0.01 K/uL (0.00-0.02) Anion Gap 8.0 mmol/L (3-11) Est Creatinine Clear Calc Drug Dose 136.2 ml/min Estimated GFR () 125.0 Estimated GFR (Non- 107.9 BUN/Creatinine Ratio 15.8 (10-20) Calcium Level 9.2 mg/dl (8.5-10.1) Total Bilirubin 0.9 mg/dl (0.2-1) Aspartate Amino Transf (AST/SGOT) 11 U/L (15-37) Alanine Aminotransferase (ALT/SGPT) 14 U/L (12-78) Alkaline Phosphatase 72 U/L (45-117) Total Protein 7.4 gm/dl (6.4-8.2) Albumin 4.1 gm/dl (3.4-5.0) Globulin 3.3 gm/dl (2.5-4.0) Albumin/Globulin Ratio 1.2 (0.9-2) Thyroid Stimulating Hormone (TSH) 0.872 uIu/ml (0.300-4.500) Salicylates Level < 1.7 mg/dl (2.8-20) Acetaminophen Level < 2 ug/ml (10-30) Valproic Acid (Depakene) Level 59 mcg/ml (50-100) Ethyl Alcohol mg/dL < 3.0 mg/dl (0-3) Mental Examination During interview pt is: alert and oriented, cooperative Appearance: appropriately dressed, appropriately groomed Eye contact is: good Motor behavior is: steady gait & station, no abnormal motor movements Speech: normal in rate, rhythm & volume Affect: depressed, flat Mood is: depressed Thought process: goal directed Thought content: reality based without delusions Suicidal thought are: present, Plan: present (to overdose), Intent: denied Homicidal thoughts are: denied Hallucinations: other (denies clear hallucinations but experiences the stripes moving on the couch, are as around objects and sees patterns in shadows) Cognition: memory grossly intact, attention grossly intact, language grossly intact Intelligence estimated to be: average Insight: impaired Judgement: impaired Impression / Recommendations Impression 22-year-old [employer] student, admitted voluntarily due to severe depression and suicidal thoughts and plan. He admits he has been inconsistent in taking his current medications and that when he was taking them consistently he felt better. We will therefore continue his medications with some minor adjustments. We will switch his Depakote to ER, increase to 1250 mg at at bedtime with a level in 5 days. We will also increase Zoloft from 75-100 mg daily to target the OCD and mood components. We will continue his Neurontin which is for his fibromyalgia and continue clonidine which she said was originally prescribed for anxiety. We will coordinate with his outpatient providers. He has submitted a 72 hour notice to withdraw from treatment which we will need to address. At this time however the patient requires inpatient mental health treatment due to the severity of his condition, and the risk for self-harm if discharged. Inventory Assets Strengths: Intelligence, good support from friends and family Needs: Medication compliance Risk Factors Assessment Male: Yes : Yes /single/: Yes Higher / Fall in social status: No Access to guns: No Health problems: Yes Mental Health Diagnoses: Yes Substance use disorders: No Previous psychiatric stay: Yes Hopelessness: Yes Smoker: Yes Protective Factors Assessment Mandaen beliefs: No : No Responsible for young children: No Employed: No Stable relationships: Yes Supportive family: Yes Recommendations (1) bipolar 1 disorder, depressed, severe, without psychotic features 07/29 - Change Depakote to extended release, shift all to bedtime, 1250 mg - Will need a level in 5 days - Will increase Zoloft to 100 mg daily to target the anxiety component, with caution to activation - Coordinate with his current providers and obtain outpatient records - Obtain records from recent [facility] hospitalization - Every 15 minute checks for safety -Encourage participation in group and individual counseling - Assist the patient to devise strategies for medication compliance - Family meeting (2) Fibromyalgia 07/29 -Continue home dosing of Neurontin (3) Absence seizure 07/29 - Not currently on any antiepileptic medicines specifically for his seizures - Does not see a neurologist - Cannot say when he last had a seizure - Most psychiatric medications can reduce seizure threshold and will be cautious (4) Anxiety 07/29 - Although patient currently denies anxiety, he says that he was anxious at [facility] and was prescribed clonidine. Will continue home dosing for now Has been reviewed with Dr. Laura Patiño CPT Code Initial Hospital Care: [id number]
[2017-07-29] MEDS: LORAZEPAM 1 MG TAB PO PRN (15:10)
[2017-07-29] MEDS: RISPERIDONE 1 MG TAB PO PRN (16:10)
[2017-07-29 21:11] VITALS: BP 92/58; PULSE 87
[2017-07-29] MEDS: DIVALPROEX 250 MG EXTENDED REL TAB PO SCH (21:16)
[2017-07-30 06:56] VITALS: BP_SYST 89; BP_SYST 99; BP_DIAS 54; BP_DIAS 67; PULSE 109; PULSE 90; TEMP 36.8
[2017-07-30] MEDS: NICOTINE POLACRILEX 2 MG GUM MT PRN ×2 (08:02→15:29)
[2017-07-30] MEDS: CLONIDINE HCL 0.1 MG TAB PO SCH ×2 (08:03→21:16)
[2017-07-30] MEDS: GABAPENTIN 100 MG CAP PO SCH ×3 (08:03→21:17)
[2017-07-30] MEDS: SERTRALINE HCL 100 MG TAB PO SCH (08:04)
[2017-07-30 08:06] VITALS: BP 105/72; PULSE 80
[2017-07-30] MEDS: NICOTINE 21 MG/24 HR TDSY TD SCH (08:35)
--- NOTE | 2017-07-30 13:41 | Psychiatric Progress Notes ---
Progress Note Date of Service Jul 30, 2017. 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 He was admitted voluntarily, and immediately submitted a 72 hour notice requesting to withdraw from treatment. Chief Complaint "Pretty well". Subjective Patient was seen & assessed interval progress reviewed with Treatment Team. Staff report the patient has been sleeping in the safe room, slept through most of the day yesterday, and requested multiple when necessary's including hydroxyzine, Ativan 1 mg, and 1 mg of Risperdal for racing thoughts and urges to harm himself. His parents visited last evening, and told staff that they were worried about his diagnosis and had set him up to be tested for autism spectrum disorder. They noted that he is very smart, but has a difficult time taking care of himself. A family meeting scheduled with them this afternoon. Although he isolated most of the day, he did come out in the day room in the evening, and attended evening community meeting. Today, he was seen in the day room, where he had return to bed although it is midday. He states that he has been spending all of his time here sleeping, as he is very tired. 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 When asked about the relationship difficulties, he states he does not want to go into it, and then says he is not really here because of that, but because he went off his medications. He states that he knows he needs his medications, but he stopped taking them for several weeks because "I just kept forgetting." When encouraged to explore this a bit more, he responded in a concrete fashion, stating "I just forgot." He states he knows he needs the medicines, and now that he is back on them, feels he is ready to leave. He does not want to rescind his 72 hour notice, stating "what else can you do hear, besides put me back on my meds?" Reviewed all the other aspects of treatment and the importance in treating his symptoms with multiple modalities, not just relying on medications, reviewing the importance of therapy, dealing with stressors, and good self-care techniques. He states that he will just curious medications around in his backpack that he will forget to take them. He does not want therapy, stating he tried it once before," and it didn't work." He continues to have visual illusions, stating that he will see stripes on the wall appear to move, or furniture will appear to move. He is not sure if he is hearing auditory hallucinations, or if it is just background noise of people talking outside in the unit, but denies any distinct hallucinations of voices. He continues to report racing thoughts, at times having difficulty knowing if it is his thoughts or voices that he is hearing and has had. He has a family meeting with his parents today, and says he is "interested to see how it goes." He says he has no idea how he will deal with his "relationship issues," but says "I'm sure I'll think of something." Again discussed the treatment recommendations, that he rescind his 72 hour notice and stay for further treatment and stabilization, and that he tried to engage more in his treatment so that he can get the most out of it. He wants to know if he will be 302'd if he refuses to rescind his notice. Sleep Information Total Hours of Sleep: 8.25 Meal Information Percent of Breakfast Consumed: 90 Percent of Lunch Consumed: 100 Percent of Dinner Consumed: 100 Mental Status Exam During interview pt is: alert and oriented, cooperative (partially), guarded Appearance: appropriately dressed, appropriately groomed, other (lying on a mattress on the floor in the quiet room, covered with a blanket) Eye contact is: good Motor behavior is: no abnormal motor movements Speech: normal in rate, rhythm & volume Affect: depressed, constricted, other (incongruent with stated mood) Mood is: other ("pretty good") Thought process: goal directed, concrete Thought content: reality based without delusions Suicidal thought are: denied Homicidal thoughts are: denied Hallucinations: other (denies clear hallucinations but experiences the stripes moving on the couch, are as around objects and sees patterns in shadows) Cognition: memory grossly intact, attention grossly intact, language grossly intact Intelligence estimated to be: average Insight: impaired Judgement: impaired Impression 22-year-old [employer] student, admitted voluntarily due to severe depression and suicidal thoughts and plan. He admits he has been inconsistent in taking his current medications and that when he was taking them consistently he felt better. Home medications were continued with some minor adjustments: changed Depakote to ER, increase to 1250 mg at at bedtime with a level in 5 days. Increased Zoloft from 75 to 100 mg daily to target the OCD and mood components. We will continue his Neurontin which is for fibromyalgia, and continue clonidine, which he said was originally prescribed for anxiety. We will coordinate with his outpatient providers. He has submitted a 72 hour notice to withdraw from treatment which we will need to address. He has a family meeting today with parents. He is not really participating in groups or therapy on the unit, and is very resistant to suggestions that he engage more in his treatment. These characteristics could be seen in the context of an autism spectrum disorder, or possibly a personality disorder. Would recommend he follow through with psych testing in order to parse this out. At this time, the patient requires inpatient mental health treatment due to the severity of his condition, and the risk for self-harm if discharged. Plan (1) bipolar 1 disorder, depressed, severe, without psychotic features 07/29 - Change Depakote to extended release, shift all to bedtime, 1250 mg - Will need a level in 5 days - Will increase Zoloft to 100 mg daily to target the anxiety component, with caution to activation - Coordinate with his current providers and obtain outpatient records - Obtain records from recent [facility] hospitalization - Every 15 minute checks for safety - Encourage participation in group and individual counseling - Assist the patient to devise strategies for medication compliance - Family meeting 07/30 - Patient encouraged to rescind his 72 hour notice and engage fully in treatment, attending and participating in groups, exploring his stressors, and working on a safety plan and a plan for better medication compliance outside the hospital. He is not willing to commit to this. - Family meeting with parents afternoon. - Encourage the patient to a lower referral for an outpatient therapist. - Has an odd affect and concrete thinking, could be consistent with an autism spectrum disorder versus [place] II personality disorder. Recommend outpatient psychological testing to help clarify diagnosis. (2) Fibromyalgia 07/29 -Continue home dosing of Neurontin (3) Absence seizure 07/29 - Not currently on any antiepileptic medicines specifically for his seizures - Does not see a neurologist - Cannot say when he last had a seizure - Most psychiatric medications can reduce seizure threshold and will be cautious (4) Anxiety 07/29 - Although patient currently denies anxiety, he says that he was anxious at [facility] and was prescribed clonidine. Will continue home dosing for now Discharge / Aftercare Planning Primary Care Physician: Name: Dr Devyn Webb Appointment Notes: As needed Psychiatrist: Name: Fátima Walker PA-C Date of Appointment: Aug 11, 2017 Time of Appointment: 10:00am Therapist: Name: tavares Risk Control Analyst: Name: tavares Visit Code E&M Code: 62761 Inventory Assets Strengths: Intelligence, good support from friends and family Needs: Medication compliance Risk Factors Assessment Male: Yes : Yes /single/: Yes Higher / Fall in social status: No Health problems: Yes Mental Health Diagnoses: Yes Substance use disorders: No Previous psychiatric stay: Yes Hopelessness: Yes Smoker: Yes Protective Factors Assessment Presybeterian beliefs: No : No Responsible for young children: No Employed: No Stable relationships: Yes Supportive family: Yes Data Vital Signs Last 24 Hrs: Date Time Temp Pulse Resp B/P (MAP) Pulse Ox O2 Delivery O2 Flow Rate FiO2 07/30/17 08:06 80 105/72 07/30/17 06:56 36.8 109 16 99/67 90 89/54 07/29/17 21:11 87 92/58 Meds Administered Last 24 Hrs: Meds Administered (Past 24Hrs) Medications (Trade) Dose Ordered Sig/Jennifer Route Start Time Stop Time Status Last Admin Dose Admin Hydroxyzine HCl (Vistaril Tab) 50 mg HSZ PRN PO 07/28/17 14:45 08/27/17 14:44 07/29/17 21:16 50 MG Divalproex Sodium (Depakote Extended Rel Tab) 500 mg BID PO 07/28/17 21:00 07/29/17 10:04 DC 07/28/17 21:06 500 MG Gabapentin (Neurontin Cap) 100 mg TID PO 07/28/17 21:00 08/27/17 20:59 07/30/17 08:03 100 MG Sertraline HCl (Zoloft Tab) 75 mg DAILY PO 07/29/17 09:00 07/29/17 10:04 DC 07/29/17 09:45 75 MG Clonidine HCl (Catapres Tab) 0.05 mg BID PO 07/28/17 21:00 08/27/17 20:59 07/30/17 08:03 0.05 MG Lorazepam (Ativan Tab) 1 mg DAILY PRN PO 07/28/17 15:00 08/27/17 14:59 07/29/17 15:10 1 MG Nicotine (Nicoderm Cq 21MG Patch) 1 patch QAM TD 07/28/17 17:30 07/30/17 08:11 DC 07/29/17 09:58 1 PATCH Nicotine Polacrilex (Nicorette 2MG Gum) 2 piece Q2H PRN MT 07/28/17 22:00 08/27/17 21:59 07/30/17 08:02 2 PIECE Divalproex Sodium (Depakote Extended Rel Tab) 1,250 mg HS PO 07/29/17 22:00 08/28/17 21:59 07/29/17 21:16 1,250 MG Sertraline HCl (Zoloft Tab) 100 mg QAM PO 07/30/17 09:00 08/29/17 08:59 07/30/17 08:04 100 MG Risperidone (Risperdal Tab) 1 mg TID PRN PO 07/29/17 15:30 08/28/17 15:29 07/29/17 16:10 1 MG Nicotine (Nicoderm Cq 21MG Patch) 1 patch QAM TD 07/30/17 09:00 08/29/17 08:59 07/30/17 08:35 1 PATCH
[2017-07-30] MEDS: RISPERIDONE 1 MG TAB PO PRN (16:11)
[2017-07-30] MEDS ORDERED: NURSING VERBAL MED ORDER ONE (17:15)
[2017-07-30] MEDS ORDERED: RISPERIDONE 1 MG TAB PO ONE (17:30)
[2017-07-30] MEDS: DIVALPROEX 250 MG EXTENDED REL TAB PO SCH (21:17)
[2017-07-30 21:39] VITALS: BP 111/70; PULSE 51
[2017-07-31 06:54] VITALS: BP_SYST 108; BP_SYST 118; BP_DIAS 72; BP_DIAS 73; PULSE 76; PULSE 97; TEMP 36.4
[2017-07-31 07:11] LABS: CHOLESTEROL/HDL RATIO 3.5
[2017-07-31] MEDS ORDERED: RISPERIDONE 1 MG TAB PO SCH (09:00)
[2017-07-31] MEDS: NICOTINE 21 MG/24 HR TDSY TD SCH (09:04)
[2017-07-31] MEDS: GABAPENTIN 100 MG CAP PO SCH (09:04)
[2017-07-31] MEDS: SERTRALINE HCL 100 MG TAB PO SCH (09:04)
[2017-07-31] MEDS: CLONIDINE HCL 0.1 MG TAB PO SCH (09:04)
[2017-07-31] MEDS ORDERED: DIVA250T PO (09:08)
[2017-07-31] MEDS ORDERED: SERT1TAB68 PO (09:08)
[2017-07-31] MEDS ORDERED: DPKSR/500 PO (09:08)
--- NOTE | 2017-07-31 09:16 | Discharge Instructions ---
Discharge Information Report Includes Report will include the: Discharge Instructions & Summary Admission Admission Date / Time: Jul 28, 2017 at 14:46 Reason for Admission: Depressive Disorder Nos Discharge Discharge Diagnosis / Problem: Bipolar disorder NEC, depressed Condition at Discharge: Fair Discharge Goals Goal(s): Decrease discomfort, Improve disease control, Prevent Disease Progression Activity Recommendations Activity Limitations: resume your previous activity . Instructions / Follow-Up Instructions / Follow-Up . SPECIAL CARE INSTRUCTIONS: 1. Follow through with your scheduled aftercare appointments. If unable to keep an appointment, please call to reschedule. 2. Take your medication only as prescribed. Medication should not be changed or stopped without the approval of your doctor. In the event of worsening symptoms or concerns about side effects, contact your doctor immediately. 3. Utilize new healthy coping skills, anger management skills, and stress management skills learned during your hospitalization. Journal feelings and process them with a support person. Identify stressors or situations that may result in relapse, deterioration or inappropriate behaviors and develop a plan to deal with those issues. 4. If your coping skills are ineffective and you are in crisis, contact your outpatient providers for direction. If unable to reach your providers, please call the CAN HELP LINE AT or go to the closest Emergency Room. 5. Avoid alcohol and un-prescribed drugs. 6. You have been provided with the Mental Health Advance Directives Pamphlet for your review. AFTERCARE APPOINTMENTS: * Please call your insurance company prior to your scheduled appointment to confirm your aftercare providers are covered. Take your insurance information to your appointments. . Discharge / Aftercare Planning Primary Care Physician: Name: Dr Devyn Webb Appointment Notes: As needed Psychiatrist: Name: Fátima Walker PA-C Date of Appointment: Aug 11, 2017 Time of Appointment: 10:00am Therapist: Name Of Therapist: none Evp Strategy: Name: none . Follow-Up Care Plan for Follow-Up Care: The patient will see his regular psychiatric provider on Aug 11 Current Hospital Diet Patient's current hospital diet: Regular Diet Discharge Diet Recommended Diet: Regular Diet Procedures Procedures Performed: No Pending Studies Pending Studies at Discharge: No Medical Emergencies . Who to Call and When: Medical Emergencies: For questions or emergencies related to your hospital stay, please contact the Inpatient Behavioral Health Unit at [phone]. A screen making technician is on-call 26/05 for the Behavioral Health Unit for emergencies At any time you feel your situation is an emergency, you may also call 911 immediately. . Non-Emergent Contact Non-Emergency issues call your: Psychiatrist Past History Medical & Surgical History: (1) Fibromyalgia Advance Directives Existing Advance Directive: No Do You Have an Existing Mental: No Existing Living Will: No Existing Power of Leather Belt Shaper: No Advance Directives Info Given: To Pt/S.O. Advance Directives Reason: Declines as Mental Health Visit. Discharge Summary Admission HPI Per the Admitting provider: The patient is a 22-year-old male who has received treatment for depression and bipolar disorder in the past. He currently sees Dillon CEE at [place] but has only seen her one time. He had previously seen Dr. Jones but did not like the medications he prescribed, feeling that he had side effects. Janes says that over recent years he feels that he has had manic episodes which include periods of elevated energy, talking fast and high productivity that last anywhere from one day to 8 days. These alternate with periods of depression. He was hospitalized at the [facility] and May following a depression with suicide attempt by overdose. Prior to going to the [facility] he had had several trials of SSRIs which he did not necessarily find helpful over time. After discharge from [facility] he was on Depakote, Zoloft and clonidine which he found helpful while he was taking them. He took his meds regularly for about a month after discharge but upon returning to classes this fall, he found that he was forgetting to take his medications up to 3 days a week. He started feeling increasingly depressed and 2 days ago began having suicidal thoughts. He talked with several of his friends who have had some experience with depression and when he mentioned the suicidal thoughts, they immediately brought him to the emergency room for evaluation. He also admits that several days ago he took many Ativan although he cannot say how many but at least greater than 5, in an attempt to "feel better". He said he would take 1 and when he didn't feel better he would take another one and this escalated over the course of several hours until he had taken many pills. He denies that this was done in an attempt to kill himself. Today he continues to feel depressed and admits to suicidal thoughts with a long -standing planned overdose. He reports poor sleep with both difficulty falling asleep as well as staying asleep getting only about 4 hours of sleep per night. This is been going on for years. His appetite has been down and he's experienced about a 10 pound weight loss over the last 1-1/2 weeks or more. He also admits to some eating disordered behaviors, saying that he is worried about his body image and has a past history of intentionally restricting in order to lose weight. He says the last time he intentionally restricted in this context was about 4 months ago. He reports low energy. He denies significant anxiety although does endorse some OCD symptoms. He says that he has had a need to correct people but has controlled that currently and only expresses that to his parents. He also feels compelled to wear earphones, for example on his way to and from class and on the bus. He describes the inside of his head as a "crowded cafeteria" and to some degree he uses the earphones to drown them out. He denies clear auditory or visual hallucinations but describes times when he sees "patterns", for example looking at the couches in the day room he sees the stripes and thinks that they may be moving and at times will look at shadows on the wall and they appear like dancing shadows. He also has times when he sees "are as around objects" and sometimes when he thinks he hears whispering but no clear voices. He also talks about "questioning reality", for example saying that he will experience something and then will have to stop and ask himself if that experience was real. Hospital Course (1) bipolar 1 disorder, depressed, severe, without psychotic features 07/29 - Change Depakote to extended release, shift all to bedtime, 1250 mg - Will need a level in 5 days - Will increase Zoloft to 100 mg daily to target the anxiety component, with caution to activation - Coordinate with his current providers and obtain outpatient records - Obtain records from recent [facility] hospitalization - Every 15 minute checks for safety - Encourage participation in group and individual counseling - Assist the patient to devise strategies for medication compliance - Family meeting 07/30 - Patient encouraged to rescind his 72 hour notice and engage fully in treatment, attending and participating in groups, exploring his stressors, and working on a safety plan and a plan for better medication compliance outside the hospital. He is not willing to commit to this. - Family meeting with parents afternoon. - Encourage the patient to a lower referral for an outpatient therapist. - Has an odd affect and concrete thinking, could be consistent with an autism spectrum disorder versus [place] II personality disorder. Recommend outpatient psychological testing to help clarify diagnosis. (2) Fibromyalgia 07/29 -Continue home dosing of Neurontin (3) Absence seizure 07/29 - Not currently on any antiepileptic medicines specifically for his seizures - Does not see a neurologist - Cannot say when he last had a seizure - Most psychiatric medications can reduce seizure threshold and will be cautious (4) Anxiety 07/29 - Although patient currently denies anxiety, he says that he was anxious at [facility] and was prescribed clonidine. Will continue home dosing for now Risk Factors Assessment Male: Yes : Yes /single/: Yes Higher / Fall in social status: No Health problems: Yes Mental Health Diagnoses: Yes Substance use disorders: No Previous psychiatric stay: Yes Hopelessness: Yes Smoker: Yes Protective Factors Assessment Sabianist beliefs: No : No Responsible for young children: No Employed: No Stable relationships: Yes Supportive family: Yes Day of Discharge Assessment COURSE OF HOSPITALIZATION: The patient was admitted to our unit voluntarily after presenting to the emergency department with severe depression and suicidal ideation. He quickly submitted to 72 hour notice to withdraw from treatment intending to be back in school as quickly as possible. He had had a recent hospitalization at the [facility] where he was diagnosed with bipolar disorder and placed on Depakote. He felt he did well when he took his medications regularly but since the beginning of the semester has been missing his medicines as much as 3 days per week and this exacerbated his depression. Upon admission, Depakote was increased to 1250 mg of extended release Depakote at bedtime to facilitate its compliance. He will be due for a level on or about August 02. His Zoloft was also increased to 100 mg daily to target mood, anxiety and some obsessive traits. The patient slept each night in the open seclusion room where he felt much calmer rather than sleeping in his room. Yesterday, he had several episodes in which he was acutely agitated, requesting antipsychotic medication and today he characterizes those episodes as anxiety attacks related to whether or not he would be discharged today. He had had what he describes as a "bad experience" it [facility] where they would not discharge him when he wanted them to. He did not feel that the Risperdal was helpful and feels that the Ativan gives him better relief of his anxiety. He denied that he was having active hallucinations during that time. His family visited him during this stay and were supportive of him getting back to school as soon as possible. His 72 hour notice expires today, he meets no criteria for ongoing involuntary treatment and he does not wish to sign in voluntarily. DAY OF DISCHARGE ASSESSMENT: Today the patient is requesting discharge. He again feels that his agitated episodes were related to anxiety and not psychosis and restates that he does not think that the Risperdal was helpful. We will therefore move forward with discharge. I reviewed safety planning which includes returning to the emergency room in the event of suicidality or worsening condition. Today he is casually and appropriately dressed and groomed. Gait and station are within normal limits. Eye contact is good. Affect is flat. Speech is of normal rate volume and tone. Thoughts are organized, goal-directed, and without evidence of thought disorder today. Recent and remote memory are intact per conversation. Intelligence is estimated to be average. Insight and judgment are improved over admission. Laboratory Test 07/28/17 11:16 07/28/17 12:07 07/31/17 06:15 Urine Color DK YELLOW Urine Appearance CLEAR Urine pH 7.0 Urine Specific [place] 1.025 Urine Protein NEG Urine Glucose (UA) NEG Urine Ketones TRACE Urine Occult Blood NEG Urine Nitrite NEG Urine Bilirubin NEG Urine Urobilinogen POS Urine Leukocyte Esterase NEG Urine Opiates Screen NEG Urine Methadone, Qualitative NEG Urine Barbiturates NEG Urine Phencyclidine (PCP) Level NEG Ur Amphetamine/Methamphetamine NEG MDMA (Ecstasy) Screen NEG Urine Benzodiazepines Screen NEG Urine Cocaine Metabolite NEG Urine Marijuana (THC) NEG White Blood Count 3.49 Red Blood Count 5.38 Hemoglobin 15.8 Hematocrit 46.3 Mean Corpuscular Volume 86.1 Mean Corpuscular Hemoglobin 29.4 Mean Corpuscular Hemoglobin Concent 34.1 Platelet Count 218 Mean Platelet Volume 10.6 Neutrophils (%) (Auto) 60.4 Lymphocytes (%) (Auto) 25.5 Monocytes (%) (Auto) 8.0 Eosinophils (%) (Auto) 4.9 Basophils (%) (Auto) 0.9 Neutrophils # (Auto) 2.11 Lymphocytes # (Auto) 0.89 Monocytes # (Auto) 0.28 Eosinophils # (Auto) 0.17 Basophils # (Auto) 0.03 RDW Standard Deviation 38.9 RDW Coefficient of Variation 12.5 Immature Granulocyte % (Auto) 0.3 Immature Granulocyte # (Auto) 0.01 Sodium Level 139 Potassium Level 4.1 Chloride Level 104 Carbon Dioxide Level 27 Anion Gap 8.0 Blood Urea Nitrogen 16 Creatinine 1.00 Est Creatinine Clear Calc Drug Dose 136.2 Estimated GFR () 125.0 Estimated GFR (Non- 107.9 BUN/Creatinine Ratio 15.8 Random Glucose 78 Calcium Level 9.2 Total Bilirubin 0.9 Aspartate Amino Transferase (AST) 11 Alanine Aminotransferase (ALT) 14 Alkaline Phosphatase 72 Total Protein 7.4 Albumin 4.1 Globulin 3.3 Albumin/Globulin Ratio 1.2 Thyroid Stimulating Hormone (TSH) 0.872 Salicylates Level < 1.7 Acetaminophen Level < 2 Valproic Acid Level 59 Ethyl Alcohol mg/dL < 3.0 Fasting Glucose 84 Triglycerides Level 78 Cholesterol Level 127 HDL Cholesterol 36 LDL Cholesterol, Calculated 75 VLDL Cholesterol, Calculated 16 Cholesterol/HDL Ratio 3.5 Total Time Total Time Spent (min): Greater than 30 minutes Total Time Included: examination of the patient, discharge planning, medication reconciliation, communication with other providers Tobacco Cessation at Discharge Smoking Status: Current Every Day Smoker FDA approved Prescription: declined med & out pt counseling
[2017-07-31] MEDS: NICOTINE POLACRILEX 2 MG GUM MT PRN (09:59)
== END 2017-07-31 10:57 | disposition home or self-care (01) | DRG 885 ==
LOC: C.EDB 10:53 → C.MHU 14:46
PROVIDERS: ADMIT Psychiatry & Neurology Psychiatry; ATTEND Psychiatry & Neurology Psychiatry
DX: F31.4 Bipolar disorder, current episode depressed, severe, without psychotic features (principal); R45.851 Suicidal ideations; M79.7 Fibromyalgia; F41.9 Anxiety disorder, unspecified; F17.200 Nicotine dependence, unspecified, uncomplicated; Z79.899 Other long term (current) drug therapy; Z81.8 Family history of other mental and behavioral disorders

== ENCOUNTER → 2017-08-09 | Outpatient (CLI) | payer BC ==
[~2017-08-09] MED LIST changes: +ATV/1 PO; -CLON1TAB3 PO; +CTP/1 PO; +DIVA250T PO; +DPKSR/500 PO; +GABA1CAP PO; -PARO1TAB27 PO; +SERT1TAB68 PO
== END | disposition home or self-care (01) ==
LOC: C.LAB 11:29
PROVIDERS: ATTEND Registered Nurse Psychiatric/Mental Health
DX: Z51.81 Encounter for therapeutic drug level monitoring (principal); Z79.899 Other long term (current) drug therapy

== ENCOUNTER → 2017-11-01 | Outpatient (CLI) | payer BC ==
[~2017-11-01] MED LIST changes: +GABA-1693 PO; -GABA1CAP PO; -SERT1TAB68 PO
[2017-11-01 07:56] LABS: BASO % 0.4 %; BASO ABS # 0.02 K/uL (0-0.2); EOS % 4.9 %; EOS ABS # 0.27 K/uL (0-0.5); HEMATOCRIT 45.7 % (42-52); HEMOGLOBIN 16.8 g/dL (14.0-18.0); IG# 0.02 K/uL (0.00-0.02); LYMPH % 37.5 %; LYMPH ABS # 2.06 K/uL (1.2-3.4); MEAN CELL VOLUME 85.9 fL (80-100); MEAN CORPUSCULAR HEMOGLOBIN 31.6 pg (25-34); MEAN CORPUSCULAR HGB CONC 36.8 g/dl (32-36); MEAN PLATELET VOLUME 11.2 fL (7.4-10.4); MONO % 6.9 %; MONO ABS # 0.38 K/uL (0.11-0.59); NEUT % 49.9 %; NEUT ABS # 2.75 K/uL (1.4-6.5); PLATELET COUNT 145 K/uL (130-400); RED CELL DISTRIBUTION WIDTH SD 37.9 fL (36.4-46.3)
[2017-11-01 08:37] LABS: ALBUMIN 3.7 gm/dl (3.4-5.0); ALT/SGPT 14 U/L (12-78); BLOOD UREA NITROGEN 16 mg/dl (7-18); CALCIUM 9.3 mg/dl (8.5-10.1); CARBON DIOXIDE 31 mmol/L (21-32); CHOLESTEROL 135 mg/dl (0-200); CREATININE 1.04 mg/dl (0.60-1.40); GLUCOSE 83 mg/dl (70-99); SODIUM 138 mmol/L (136-145)
[2017-11-01 08:43] LABS: ALKALINE PHOSPHATASE 56 U/L (45-117); AST/SGOT 9 U/L (15-37); LDL CHOLESTEROL CALCULATED 70 mg/dl; TOTAL PROTEIN 7.3 gm/dl (6.4-8.2)
[2017-11-01 10:08] LABS: HEMOGLOBIN A1C 4.9 % (4.5-5.6)
== END | disposition home or self-care (01) ==
LOC: C.LAB 07:00
PROVIDERS: ATTEND Physician Assistant
DX: Z79.899 Other long term (current) drug therapy (principal)

== ENCOUNTER → 2018-03-14 | Outpatient (CLI) | payer OTHER ==
[~2018-03-14] MED LIST changes: -DIVA250T PO; -GABA-1693 PO; +GABA100C13 PO
== END | disposition home or self-care (01) ==
LOC: C.LAB 07:29
PROVIDERS: ATTEND Family Medicine
DX: N52.2 Drug-induced erectile dysfunction (principal)

== ENCOUNTER 2019-11-16 00:50 | Inpatient (IN) ==
[2019-11-16] MEDS ORDERED: DIVALPROEX EXTENDED RELEASE 250 MG TABCR PO STA (01:39)
[2019-11-16] MEDS ORDERED: DEXMETHYLPHENIDATE PO STA (01:39)
[2019-11-16 01:45] LABS: Basophils # (auto) 0.04 K/uL (0-0.2); Basophils % (auto) 0.5 %; Eosinophils # (auto) 0.18 K/uL (0-0.5); Eosinophils % (auto) 2.4 %; Hemoglobin 15.7 g/dL (14.0-18.0); Immature Granulocytes # (auto) 0.02 K/uL (0.00-0.02); Immature Granulocytes % (auto) 0.3 %; Lymphocytes # (auto) 2.42 K/uL (1.2-3.4); Lymphocytes % (auto) 32.5 %; Mean Corpuscular Hemoglobin 30.8 pg (25-34); Mean Corpuscular Hgb Conc 36.5 g/dL (32-36); Mean Corpuscular Volume 84.3 fL (80-100); Mean Platelet Volume 10.1 fL (7.4-10.4); Monocytes # (auto) 0.37 K/uL (0.11-0.59); Neutrophils # (auto) 4.42 K/uL (1.4-6.5); Neutrophils % (auto) 59.3 %; Platelet Count 241 K/uL (130-400); RDW Coefficient of Variation 12.3 % (11.5-14.5); RDW Standard Deviation 37.6 fL (36.4-46.3); White Blood Count 7.45 K/uL (4.8-10.8)
[2019-11-16 02:03] LABS: Albumin Level 3.8 gm/dl (3.4-5.0); BUN Creatinine Ratio 10.3 (10-20); Calcium 8.9 mg/dl (8.5-10.1); Creatinine Clr Calc Pharmacy 107.8 ml/min; Est GFR (African American) 94.1; Est GFR (Non-African American) 81.2; Potassium 3.6 mmol/L (3.5-5.1)
[2019-11-16 02:14] LABS: Albumin Globulin Ratio 1.1 (0.9-2); Bilirubin,Total 0.6 mg/dl (0.2-1); Globulin 3.5 gm/dl (2.5-4.0); Thyroid Stimulating Hormone 1.27 uIu/ml (0.300-4.500); Total Protein 7.3 gm/dl (6.4-8.2)
[2019-11-16 02:20] LABS: Acetaminophen < 2 ug/ml (10-30); Salicylate < 1.7 mg/dl (2.8-20)
[2019-11-16 02:53] LABS: Appearance Urine Turbid (Clear); Bacteria Urine Automated Negative (Negative); Bilirubin Urine Negative (Negative); Blood Urine Negative (Negative); Cast Urine Automated 0 /lpf (0-5); Color Urine Yellow; Epithelial Cell Urine Auto 0-5 /lpf (0-5); Glucose Urine UA Negative (Negative); Ketones Urine Negative (Negative); Leukocyte Esterase Urine Negative (Negative); Nitrite Urine Negative (Negative); Protein Urine Negative (Negative); RBC Urine Automated 0-4 /hpf (0-4); Specific Gravity Urine 1.022 (1.000-1.030); Urobilinogen Urine Negative (Negative); WBC Urine Automated 0 /hpf (0-5); pH Urine 7.5 (4.5-7.5)
[2019-11-16 03:09] LABS: Amphetamines+Metham, Urine Neg (Neg); Barbiturates, Urine Neg (Neg); Benzodiazepine, Urine Neg (Neg); Cocaine, Urine Neg (Neg); MDMA (Ecstacy), Urine Neg (Neg); Methadone, Urine Neg (Neg); Opiate, Urine Neg (Neg); Phencyclidine, Urine Neg (Neg)
--- NOTE | 2019-11-16 04:19 | Emergency Department Note ---
Entered by Rajesh Kraft acting as a scribe for History of Present Illness General Chief complaint: Mental Health Evaluation Stated complaint: DEPRESSION Source: patient History of Present Illness Onset (ago): day(s) (last night) Location: head Pain Consistency: + other (an episode) Quality: + other (suicidal ideations) Associated symptoms: + other (Negative for plan.) The patient is a 24 year old male who presents to the emergency department with complaints of an episode of suicidal ideations occurring last night. The patient states that he has a history of bipolar and depression. He notes that he has had some increased financial and academic stressors recently, and he reports that he was depressed last night. The patient states that he had suicidal ideations at that time. He denies any plan. He notes that he tried to overdose on his Ativan in the past. He reports that he takes Ativan, Depakote, and Focalin, but he states that he has not taken his medication for a few weeks. Home Medications Home Medications Medication Instructions Recorded Confirmed Type aripiprazole [Abilify Maintena] 0 mg IM MONTHLY 05/21/19 11/16/19 History divalproex [Depakote] 1,000 mg PO QPM 05/21/19 11/16/19 History divalproex [Depakote] 250 mg PO QPM 05/21/19 11/16/19 History lorazepam [Ativan] 1 mg PO DAILY PRN 05/21/19 11/16/19 History dexmethylphenidate [Focalin XR] 40 mg PO DAILY 10/05/19 11/16/19 History Allergies Allergy/AdvReac Type Severity Reaction Status Date / Time No Known Allergies Allergy Unverified 05/21/19 22:03 Past Med/Surg History Medical History (Updated 11/16/19 @ 05:22 by Louis Desouza MD) Absence seizure Anxiety (Chronic) Bipolar disorder Depression (Chronic) Fever (Acute) Fibromyalgia (Chronic) Headache (Acute) Pneumonia (Acute) Suicidal ideation Social History Preferred Language: Setswana Feels Safe at Home: Yes Smoking Status: Former smoker Review of Systems See HPI for pertinent positives & negatives. and A total of 10 systems reviewed and were otherwise negative Physical Exam Vital Signs Vital Signs - 24 hr 11/16/19 00:53 Temperature 37.3 C Temperature Source Oral Pulse Rate 93 H Respiratory Rate 18 Blood Pressure 131/77 Blood Pressure Mean 95 Blood Pressure Position Sitting Pulse Oximetry 97 Oxygen Delivery Method Room Air Sepsis Recent Fever Within 48 Hours No Sepsis Action Taken by Nursing No Action Required GENERAL: Awake, alert, well-appearing, in no acute distress HENT: Normocephalic, atraumatic. Oropharynx unremarkable. EYES: Normal conjunctiva. Sclera non-icteric. NECK: Supple. No nuchal rigidity. FROM. No JVD. RESPIRATORY: Clear to auscultation. CARDIAC: Regular rate, normal rhythm. Extremities warm and well perfused. Pulses equal. ABDOMEN: Soft, non-distended. No tenderness to palpation. No rebound or guarding. No masses. RECTAL: Deferred. MUSCULOSKELETAL: Chest examination reveals no tenderness. The back is symmetrical on inspection without obvious abnormality. There is no CVA tenderness to palpation. No joint edema. LOWER EXTREMITIES: Calves are equal size bilaterally and non-tender. No edema. No discoloration. NEURO: Normal sensorium. No sensory or motor deficits noted. SKIN: No rash or jaundice noted. Course Course 0132: The patient was evaluated in room A8. A complete history and physical exam was performed. Administered Medications Discontinued Medications Divalproex Sodium (Depakote Extended Release) 1,250 mg PO NOW STA Stop: 11/16/19 01:40 Last Admin: 11/16/19 01:54 Dose: 1,250 mg Documented by: [id number] Medical Decision Making Differential Diagnosis Differential diagnosis: Etiologies such as psychiatric disorder, infection, hypoglycemia, electrolyte ab normalities, cardiac sources, intracerebral event, toxicological process, neurologic disorder, as well as others were entertained. Medical Records Attestation: I reviewed the patient's medical records. Home Medications Current Medication List: was personally reviewed by me Laboratory Data Attestation: I reviewed the patient's lab results. Result diagrams: 11/16/19 01:29 11/16/19 01:29 Lab Results 11/16/19 11/16/19 11/16/19 Range/Units : 01: 01:29 WBC 7.45 (4.8-10.8) K/uL RBC 5.10 (4.7-6.1) M/uL Hgb 15.7 (14.0-18.0) g/dL Hct 43.0 (42-52) % MCV 84.3 (80-100) fL MCH 30.8 (25-34) pg MCHC 36.5 H (32-36) g/dL RDW Std Deviation 37.6 (36.4-46.3) fL RDW Coeff of Karlo 12.3 (11.5-14.5) % Plt Count 241 (130-400) K/uL MPV 10.1 (7.4-10.4) fL Immature Gran % (Auto) 0.3 % Neut % (Auto) 59.3 % Lymph % (Auto) 32.5 % [place] % (Auto) 5.0 % Eos % (Auto) 2.4 % Baso % (Auto) 0.5 % Immature Gran # (Auto) 0.02 (0.00-0.02) K/uL Neut # (Auto) 4.42 (1.4-6.5) K/uL Lymph # (Auto) 2.42 (1.2-3.4) K/uL [place] # (Auto) 0.37 (0.11-0.59) K/uL Eos # (Auto) 0.18 (0-0.5) K/uL Baso # (Auto) 0.04 (0-0.2) K/uL Sodium 141 (136-145) mmol/L Potassium 3.6 (3.5-5.1) mmol/L Chloride 108 H (98-107) mmol/L Carbon Dioxide 29 (21-32) mmol/L Anion Gap 4.0 (3-11) BUN 13 (7-18) mg/dl Creatinine 1.25 (0.6-1.4) mg/dl Est Cr Clr Drug Dosing 107.8 ml/min Est GFR ( Amer) 94.1 Est GFR (Non-Af Amer) 81.2 BUN/Creatinine Ratio 10.3 (10-20) Glucose 94 (70-99) mg/dl Calcium 8.9 (8.5-10.1) mg/dl Total Bilirubin 0.6 (0.2-1) mg/dl AST 16 (15-37) U/L ALT 28 (12-78) U/L Alkaline Phosphatase 70 (45-117) U/L Total Protein 7.3 (6.4-8.2) gm/dl Albumin 3.8 (3.4-5.0) gm/dl Globulin 3.5 (2.5-4.0) gm/dl Albumin/Globulin Ratio 1.1 (0.9-2) TSH 1.270 (0.300-4.500) uIu/ml Urine Color Urine Appearance (Clear) Urine pH (4.5-7.5) Ur Specific [place] (1.000-1.030) Urine Protein (Negative) Urine Glucose (UA) (Negative) Urine Ketones (Negative) Urine Blood (Negative) Urine Nitrite (Negative) Urine Bilirubin (Negative) Urine Urobilinogen (Negative) Ur Leukocyte Esterase (Negative) Urine WBC (Auto) (0-5) /hpf Urine RBC (Auto) (0-4) /hpf U Hyaline Cast (Auto) (0-5) /lpf U Epithel Cells (Auto) (0-5) /lpf Urine Bacteria (Auto) (Negative) Salicylates < 1.7 L (2.8-20) mg/dl Urine Opiates Screen (Neg) Ur Methadone, Qual (Neg) Acetaminophen < 2 L (10-30) ug/ml Urine Barbiturates (Neg) Ur Phencyclidine (PCP) (Neg) U Amphetamin/Meth Scrn (Neg) MDMA (Ecstasy) Screen (Neg) U Benzodiazepines Scrn (Neg) Ur Cocaine Metabolite (Neg) U Marijuana (THC) Screen (Neg) Ethyl Alcohol mg/dL (0-3) mg/dl 11/16/19 11/16/19 11/16/19 Range/Units 01:29 02:37 02:37 WBC (4.8-10.8) K/uL RBC (4.7-6.1) M/uL Hgb (14.0-18.0) g/dL Hct (42-52) % MCV (80-100) fL MCH (25-34) pg MCHC (32-36) g/dL RDW Std Deviation (36.4-46.3) fL RDW Coeff of Karlo (11.5-14.5) % Plt Count (130-400) K/uL MPV (7.4-10.4) fL Immature Gran % (Auto) % Neut % (Auto) % Lymph % (Auto) % [place] % (Auto) % Eos % (Auto) % Baso % (Auto) % Immature Gran # (Auto) (0.00-0.02) K/uL Neut # (Auto) (1.4-6.5) K/uL Lymph # (Auto) (1.2-3.4) K/uL [place] # (Auto) (0.11-0.59) K/uL Eos # (Auto) (0-0.5) K/uL Baso # (Auto) (0-0.2) K/uL Sodium (136-145) mmol/L Potassium (3.5-5.1) mmol/L Chloride (98-107) mmol/L Carbon Dioxide (21-32) mmol/L Anion Gap (3-11) BUN (7-18) mg/dl Creatinine (0.6-1.4) mg/dl Est Cr Clr Drug Dosing ml/min Est GFR ( Amer) Est GFR (Non-Af Amer) BUN/Creatinine Ratio (10-20) Glucose (70-99) mg/dl Calcium (8.5-10.1) mg/dl Total Bilirubin (0.2-1) mg/dl AST (15-37) U/L ALT (12-78) U/L Alkaline Phosphatase (45-117) U/L Total Protein (6.4-8.2) gm/dl Albumin (3.4-5.0) gm/dl Globulin (2.5-4.0) gm/dl Albumin/Globulin Ratio (0.9-2) TSH (0.300-4.500) uIu/ml Urine Color Yellow Urine Appearance Turbid A (Clear) Urine pH 7.5 (4.5-7.5) Ur Specific [place] 1.022 (1.000-1.030) Urine Protein Negative (Negative) Urine Glucose (UA) Negative (Negative) Urine Ketones Negative (Negative) Urine Blood Negative (Negative) Urine Nitrite Negative (Negative) Urine Bilirubin Negative (Negative) Urine Urobilinogen Negative (Negative) Ur Leukocyte Esterase Negative (Negative) Urine WBC (Auto) 0 (0-5) /hpf Urine RBC (Auto) 0-4 (0-4) /hpf U Hyaline Cast (Auto) 0 (0-5) /lpf U Epithel Cells (Auto) 0-5 (0-5) /lpf Urine Bacteria (Auto) Negative (Negative) Salicylates (2.8-20) mg/dl Urine Opiates Screen Neg (Neg) Ur Methadone, Qual Neg (Neg) Acetaminophen (10-30) ug/ml Urine Barbiturates Neg (Neg) Ur Phencyclidine (PCP) Neg (Neg) U Amphetamin/Meth Scrn Neg (Neg) MDMA (Ecstasy) Screen Neg (Neg) U Benzodiazepines Scrn Neg (Neg) Ur Cocaine Metabolite Neg (Neg) U Marijuana (THC) Screen Neg (Neg) Ethyl Alcohol mg/dL < 3.0 (0-3) mg/dl Blood Pressure Blood Pressure Findings: Elevated blood pressure Blood Pressure Disposition: elevated BP felt to be situational MDM Narrative This is a 24-year-old male who presents emergency department complaining of having stopped his medications approximately 3 weeks ago. The patient reports he is suicidal. He was medically cleared by me. He was independently evaluated by [facility] psychiatric liaison and the patient was subsequently admitted to S. He was restarted on his medications here in the emergency department. Impression & Plan Mood disorder Discharge Plan Visit Data Chief Complaint: Mental Health Evaluation Stated Complaint: DEPRESSION ED Provider: Louis Desouza Discharge Problem: Mood disorder Forms Stand Alone Forms: [facility], Suicide Prevention Resources Prescriptions Prescriptions: No Action divalproex [Depakote] 250 mg tablet,delayed release (DR/EC) 250 mg PO QPM RF: 0 divalproex [Depakote] 500 mg tablet,delayed release (DR/EC) 1,000 mg PO QPM RF: 0 lorazepam [Ativan] 1 mg tablet 1 mg PO DAILY PRN (Reason: Anxiety) RF: 0 Abilify Maintena 400 mg suspension,extended rel syring 0 mg IM MONTHLY RF: 0 dexmethylphenidate [Focalin XR] 40 mg capsule,ER biphasic 50-50 40 mg PO DAILY RF: 0 The scribe's documentation has been prepared under my direction and personally reviewed by me in its entirety. I confirm that the note above accurately reflects all work, treatment, procedures, and medical decision making performed by me.
--- NOTE | 2019-11-16 08:53 | History & Physical ---
Date of Service November 16, 2019 Impression / Recommendations Impression 24-year-old male admitted voluntarily for inpatient psychiatric treatment on 11/16/2019. Patient was last admitted to our unit in 07/2017, and has continued with routine outpatient psychiatric follow-up since that time. Patient reports ongoing mood instability, with recent depressive symptoms and suicidal ideation. Patient states he did not feel safe at home with the suicidal ideation, and a friend brought him to the emergency room for further evaluation. Patient's case was reviewed with his outpatient psychiatric physician contact lens assistant and supplemental information is outlined above. Patient does admit to improvement and stability of mood, consistency of sleep, and clarity of thought when he takes his psychiatric medication regimen consistently. He has been compliant with monthly Abilify Maintena injections; however is noncompliant with his prescription of valproic acid. Patient also shared with psychiatrist that he has been overusing his prescribed Focalin, taking as many as 4 tablets in the course of a day to improve attention and concentration. Given patient is not actively participating in academic classes and openly admits to overusing the medication, we are recommending discontinuation of Focalin. It was reviewed with outpatient psychiatric physician contact lens assistant, who is in support of the decision. In light of misuse of controlled substances, we are also not recommending that lorazepam be utilized for management of anxiety given abuse potential of this medication as well. It is our recommendation at this time, that patient continue on monthly Abilify Maintena injections, and that valproic acid be resumed. We will focus attention during treatment on medication compliance and ways to improve outpatient support. We will need to coordinate outpatient psychiatric follow-up, as patient states that he had appointment scheduled to transition care to another psychiatric prescriber. He was also not upfront about whether or not he has been meeting with a therapist routinely. Joaquin beatty was informed of recommendation that his parents be involved in a family meeting to discuss aftercare and safety plans prior to discharge. We will attempt to gather collateral information from parents as well as other outpatient psychiatric providers. Over the course of his hospitalization, patient will be encouraged to participate in group and recreational programming. At this time, inpatient psychiatric treatment is medically necessary due to reports of suicidal ideation, reported mood instability, and need to appropriately coordinate care with his outpatient providers prior to discharge. Patient is perceived to still be at acute risk of harm to self if he is discharged prematurely. Dr. Laura Patiño was directly involved in review and discussion of the patient's case and participated in medical decision making regarding treatment recommendations. (1) Suicidal ideation: 11/16 - Admitted to a locked inpatient behavioral health unit, on q15 minute safety checks - Encourage medication initiation/adjustments as indicated - Encourage participation in group and recreational therapies - Gather collateral information from outpatient providers - Suggest family meeting to involve outpatient supports in safety planning - Arrange appropriate aftercare (2) Schizoaffective disorder, bipolar type: 11/16 - Current outpatient diagnosis is schizoaffective disorder, bipolar type - additional information provided by patient's outpatient psychiatric physician contact lens assistant indicates that he does meet criteria for a diagnosis of schizophrenia. Patient's case was reviewed over the phone with his outpatient psychiatric provider. - Medication compliance is historically poor; however, patient has reportedly done well on a combination of Abilify Maintena and valproic acid -we will suggest continuing this medication regimen with a focus of inpatient treatment being on ways to improve medication compliance. - Will encourage participation in group and recreational programming, utilization of one-to-one counseling as indicated/desired - Will encourage family meeting with parents in order to obtain collateral information and discuss aftercare and safety planning (3) Stimulant abuse: 11/16 - Pt did inform psychiatrist that he has been overusing his stimulant prescription. Patient states he has been taking as many as four 40mg Focalin a day in order to improve attention and concentration - Pt last filled #30 tabs on 11/08/2019 and states he ran out several days ago - he has consistently filled the prescription early for the past several months - This information was reviewed with outpatient psychiatric physician contact lens assistant, who is agreeable with recommendation that the medication be discontinued at this time. - Will ensure this information is passed along to other psychiatric providers as indicated (4) Anxiety: 11/16 - Pt reporting he has not had a panic attack in several months; feeling anxiety is decently controlled with coping strategies - Previous prescription for lorazepam #15 tabs on 09/07/2019 - no subsequent prescriptions filled - Given reported overuse of stimulant medications, and contraindication with current daily alcohol use - would not suggest patient continue the medication given misuse of other controlled substances - Care coordinated with [facility]; will also fax to Dr. Calvert as patient had indicated he may have been planning to switch providers - At this time, substances with abuse potential are not recommended as patient of patient medication recommendation (5) Fibromyalgia: 11/16 - Historical diagnosis from 2017 H&P - Pt was previously prescribed gabapentin, no longer taking - Pt states he has not been compliant with medications or outpatient follow- up - Not a primary focus of treatment at this time, recommendation would be as needed follow-up with outpatient PCP (6) Absence seizure: 11/16 - Historical diagnosis from 2017 H&P; though patient denies seizure disorder - As of 2017 admission, patient had denied outpatient neurological follow-up - (7) Alcohol abuse: 11/16 - Pt admits to consuming as many as 3 beer daily for several months; having recently presented to the ED after taking an excess of prescribed medications in combination with alcohol - For this reason, continued use of medications with abuse potential is not recommended. Pt was informed he would not be provided with Focaling or lorazepam during his admission -Brief intervention was offered and accepted Intervention was greater than 5 min in length. Brief interventions include: 1. Assess Readiness to Quit, 2. Advise: Help Patient to Reduce or Abstain from Alcohol, 3. Agree: Set Specific, Feasible Goals, 4. Assist: Anticipate barriers, Problem-Solving Solutions. Social work to 5. Arrange: Referrals to appropriate treatment. Summary of intervention: The patient is in precontemplation stage with regards to transtheoretical model of change. The patient is advised to decrease alcohol consumption due to depressant effects and risk of interactions with prescription medications. The patient was advised of recommendations for abstinence from alcohol and other abusable substances and to attend substance abuse treatment at discharge, and will be provided with recovery materials to continue to education self on how to cope with their condition without drinking. Inventory Assets Strengths: Intelligence; current psychiatric prescribers; support of mothers Needs: Consistency with medication; coordinate of care with outpatient providers Risk Factors Assessment Male: Yes : Yes Do You Have Access To A Gun?: No Mental Health Diagnoses: Yes Substance Use Disorders: Yes (alcohol abuse; over-using stimulant) Previous Attempt: Yes Previous Psychiatric Hospitalization: Yes Hopelessness: Yes Smoker: Yes Protective Factors Assessment Rastafari Beliefs: No : No Responsible for Young Children: No Employed: No Supportive Family: Yes Psychiatric History Identifying Data JEFFERSON LANDRY is a 24-year-old M who currently lives in [place] in an apartment with two roommates. Parents reportedly live locally as well. Pt was admitted on 11/16/19 05:11 on a 201 voluntary commitment for worsening depression and suicidal ideation. Denied specific plan, but does have two prior suicide attempts and was reportedly unable to contract for safety outside of the inpatient setting. Chief Complaint "I was really depressed, and naresh having suicidal thoughts. I should have seen it coming." History of Present Illness Jefferson Landry (Alex) is a 24-year-old male admitted voluntarily for inpatient psychiatric treatment after presenting to the ED with reports of worsening depression and suicidal ideation. Patient states that he was transported to the emergency room by a friend, after disclosing his depressive symptoms with thoughts to end his life. Patient did deny a specific plan; however, has 2 prior suicide attempts by overdose and was unable to contract for safety outside of the inpatient hospital setting. Of additional concern is the fact that patient presented to the emergency room on 10/05/2019 stating that he had overused Adderall and lorazepam while intoxicated, as he was feeling anxious. Patient denied that this action was done in an attempt to end his life, and was discharged home after medical clearance. He was most recently hospitalized on our unit in 07/2017, and denied inpatient psychiatric hospitalizations since that time. He is continue to follow at [facility] for outpatient psychiatric treatment. It is unclear if he is presently following with an outpatient therapist. Patient was cooperative with psychiatric evaluation. He provided verbal consent for Marialuisa Villa PA-C to observe today's encounter. He does state that "I was really depressed, and kind of having suicidal thoughts. I should have seen it coming." Patient states that he has a history of "bipolar disorder", and that the transitions from one mood state to another are generally difficult for him. Patient states that especially with transition from "manic to depressed" is concerning as " I still have a lot of energy, but the mindset of a depressed person." Patient states that he was concerned about the potential for him to act on suicidal thoughts, which led to him reaching out to a friend and coming to the emergency room for further evaluation. Patient describes a "manic" state as "energetic, more productive, but never destructive. I find I can do schoolwork 4 days." The patient states that he has gained a "better understanding of the diagnosis" over time, and is better able to manage the symptoms of these "manic phases." Patient does state that when he is in more of a depressed mood, he is "still energetic, but less productive." Patient states that when his mood is lower, he has limited ability to fall and remain asleep. Appetite is often reduced and depressed phases as well. At this time, patient does indicate additional stressors related to school and financial concerns. Patient states that he is also experiencing increased anxiety related to his current relationship. Patient states that the symptoms are well managed on his current medication regimen; however, he does admit to running out of most of his medications recently. Patient states that he was happy to have been able to receive a medication in an injectable form, as he has difficulty remaining compliant with his oral medications. Patient informs this provider that he has not taken his Depakote in several days; however, history suggests it may have been several months since he last received this medication. Patient states that Focalin has been prescribed for diagnosis of ADHD, though he questions if he may also have narcolepsy based on his chronic fatigue. Patient states that he utilizes as needed lorazepam for acute anxiety, but has been out of this medication as well. Patient does admit to episodes of paranoia, where patient may believe "someone is trying to hurt me, or there is a specific task that I need to complete but I am never sure why." Patient also admits to auditory hallucinations, in which he hears "the voices of my friends." Patient states that the hallucinations are not commanding in nature, but rather will state his name or whisper words to him. He denies visual hallucinations at this time. Patient states that he does consume tobacco via vaping, stating his consumption is the equivalent of a pack per day. Patient also admits to "close to daily" alcohol intake. He admits to consuming 1-3 beers regularly with a close friend. Pt denies history of withdrawal symptoms, and denies history of formal drug or alcohol treatment in the past. Pt denies HI, SIB, OCD, PTSD, eating disorder, and other specific psychiatric symptoms. Past Psychiatric History Current Psychiatric Diagnosis: Schizoaffective disorder, bipolar type Outpatient Services: Psychiatric prescriber - Fátima Walker PA-C - [facility] Therapist - unclear, patient initially denied then reported following with Efrem Mario, Ph.D Previous Psych Admissions: [facility] - 05/2017 [facility] - 07/2017 Do You Have Access To A Gun?: No History of Previous Suicide Attempt: Yes Describe Attempts in the Past: two prior overdoses, though patient now denies intent to end life Past Medication Trials: Per patient report and hospital documentation and out patient records: 1. Paxil - reduced efficacy over time 2. Prozac - reduced efficacy over time 3. Zoloft 4. Klonopin - worsened depression and suicidal ideation 5. Risperdal 6. Focalin XR 7. Adderall XR 8. BuSpar 9. Abilify Maintena 10.Abilify Oral 11.Clonidine 12.Depakote 13.Ativan Additional Notes: Outpatient Records from [facility] Received and Reviewed: Diagnoses: schizoaffective disorder, bipolar type; ADHD, combined type; generalized anxiety disorder Medications from most recent visit: Focalin XR 40mg once daily; Abilify Maintena 400mg IM every 28 days; Nicoderm CQ 21mg/24hr; Depakote 1250mg qHS; lorazepam 1mg daily prn; Nicotine gum 4mg piece as needed. It appears as though patient had been seen monthly for follow-up visits. Pt most recently seen on 10/12/2019 for follow-up visit. Pt reported that he had been "good", having recently "got back together with my ex girlfriend." Pt stated he had been "sleeping regular hours like a normal human." Psychosis was limited to "sometimes I have mildly paranoid thoughts", seemingly able to reality test without issue. Appetite was reportedly to be "good." Pt denied SI/HI at time of encounter. Documentation states the patient was due for his Abilify Maintena injection 2 weeks after this appointment. 09/07/2019 - Pt reported feeling "always tired", but admitted to sleeping 8-10 hours daily. Reported plan to drop the class he was taking, stating his parents were requiring him to start paying for his education by himself. Mood was reportedly stable. Anxiety denied. Denied SI/HI. Medications were unchanged. Pt did complete blood work ordered at prior visit, but results were not available to be reviewed. On 08/12/2019, patient had reported missing an exam "because he had confusion about the day it was on." Mood was reportedly "good". Pt reportedly has 1 class, but "feels that he has too much to do to be falling asleep early and he is wondering about taking focalin in divided doses at a higher dose." Pt had requested Focalin 30mg BID - with PASCUAL informing patient she was not in agreement with this plan. Medications were continued unchanged. Thyroid panel, Vitamin B12, Folate, Vitamin D, Magnesium, CBC with diff, and Rajiv Pate Evaluation were ordered. 07/15/2019 - Pt reported parents were managing medications, therefore he was unsure what he had been taking. Pt denied depressive symptoms, stating his mood was "stable." Sleep was reportedly improved. SI/HI denied. Pt received Abilify Maintena injection. 4lb weight loss. Reported consideration to reduce dose of Focalin to 30mg if weight loss continued. Medications were continued unchanged. Phone Conversation with Fátima Walker PA-C To Review Patient's Case: Fortunately, this provider was able to speak with the patient's outpatient psychiatric prescriber on the day of admission. She indicates that she has been meeting with the patient regularly for several years. Patient does state that the patient meets clear criteria for schizophrenia, though there also is the high probability of patient being on the autism spectrum. She states that in the past, the patient's parents had regularly managed his medications, during which time the patient was able to successfully complete multiple semesters of school. Over time, it is reported that parents have been less involved in the patient's treatment. In the past, [facility] was considered; however, family was reportedly not in favor of their involvement. It is reported that patient has consistently requested an increase in Focalin; however, has also consistently demonstrated episodes of weight loss. Patient's outpatient psychiatric prescriber states that she was unaware of patient's overuse of Focalin, and is agreeable with recommendation that the medication be discontinued. According to Fátima, the patient is not actively enrolled in college or gainfully employed, and therefore the medication is not indicated. She is also agreeable with lorazepam being discontinued as well. She does state that the patient does extremely well when he is consistently taking his prescribed medications. She states "he is a completely different person on Depakote", stating that sleep, mood stability, and cognitive concerns are significantly improved with appropriate medication compliance. 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 He has had 3 inpatient psychiatric hospitalizations in the past 3 years. Fátima states she was not aware of patient looking elsewhere for his outpatient services, and would like to be informed if patient is planning to transfer services elsewhere. It is stated that the patient is scheduled for a follow-up appointment on 11/29/2019. Past Head Trauma/Neuro History History of Concussion/Seizure: Yes (Patient admits to multiple concussions, having played hockey in the past) Patient denies history of seizure disorder to this provider; however, prior H&P suggest absence seizures with no outpatient neurological follow-up. Allergies Allergy/AdvReac Type Severity Reaction Status Date / Time No Known Allergies Allergy Unverified 05/21/19 22:03 Home Medications Home Medications Medication Instructions Recorded Confirmed Type aripiprazole [Abilify Maintena] 400 mg IM MONTHLY 05/21/19 11/16/19 History divalproex [Depakote] 1,000 mg PO QPM 05/21/19 11/16/19 History divalproex [Depakote] 250 mg PO QPM 05/21/19 11/16/19 History lorazepam [Ativan] 1 mg PO DAILY PRN 05/21/19 11/16/19 History dexmethylphenidate [Focalin XR] 40 mg PO DAILY 10/05/19 11/16/19 History Family History Family History of: Depression (Nonspecific family history) and Alcoholism/Drug Abuse (Maternal grandfather) Alcohol History Hx of Alcohol Use Over the Past 12 Months: Yes (3 or 4 times a week) AUDIT Total Score: 5 Patient admits to consuming alcohol "close to daily." He admits to consuming 1- 3 beer most nights during the week. He denies history of formal drug or alcohol treatment in the past. Patient does admit to vaping the equivalent of 1 pack of cigarettes per day. Smoking Use Have You Smoked or Used Tobacco Products in the Last 30 Days: Yes tobacco type: cigarettes and e-cigarettes Smoking Status: Former smoker Smoking packs per day: 1 Substance History Hx of Prescription Med Misuse Over the Past 12 Months: No Hx of Over the Counter Med Misuse Over the Past 12 Months: No Hx of Inhalent Misuse Over the Past 12 Months: No Hx of Organic Substance Use Over the Past 12 Months: No Hx of Illegal Substances/Street Drug Use Over Past 12 Months: No Problems as a Result of Past Substance Use: None Identified Denies overt illicit substance use; however, does admit to overuse of stimulant medication. At time of ED presentation on 10/05/2019, patient was positive for marijuana, which he states today that he has never used. Personal History Living Arrangements: Apartment (With 2 roommates, denies having a close relationship with them) Childhood: Patient states he was raised in [place], [place]. He moved to [place] to pursue his education, parents reportedly also moving to the area to pursue a job opportunity. 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) Marital Status: Single (Does admit to a long distance relationship of 5 months) Number Of Children: None Beliefs That Will Affect Care: None Current Legal Problems: No Hx Legal Problems: No Hx Traumatic Life Events: No Patient History Medical History Absence seizure Anxiety (Chronic) Bipolar disorder Depression (Chronic) Fever (Acute) Fibromyalgia (Chronic) Headache (Acute) Pneumonia (Acute) Suicidal ideation Family History Other Coronary heart disease Myocardial infarction Social History Preferred Language: Monegasque Communication Ability: Effective 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 Physical Exam Psychiatric: Orientation: alert, oriented x 3 and cooperative Apperance: appropriately dressed, appropriately groomed and appeared stated age Tall, lean male, seated in no acute distress. Patient is appropriately dressed in casual clothing, wearing a T-shirt and scrub pants. Patient does wear darkened corrective lenses. Hair is short and appropriately groomed. Le noris of hygiene appears adequate. Eye Contact: good eye contact Motor Behavior: steady gait and station and no abnormal motor movements Speech: normal rate/rhythm/volume of speech Affect: + blunted affect Mood: + depressed mood and + anxious mood Thought Process: goal directed thought process, clear/coherent thought process and thought association intact Thought Content: + paranoid (Patient does indicate occasional vague paranoia "someone trying to hurt me") and reality based without delusions Suicidal Thoughts: denies suicidal plan; + reports suicidal thoughts Patient does admit to suicidal ideation ongoing for the past several days. He does indicate inability to contract for safety outside of the hospital setting. Homicidal Thoughts: denies homicidal thoughts Hallucinations: + auditory hallucinations (Admits to hearing the voices of "friends", occasionally whispering); no visual hallucinations (At this time, though there is a history of visual hallucinations) Cognition: attention grossly intact and language grossly intact Insight: + impaired insight Judgement: + impaired judgement Vital Signs (Past 24 Hours): Last Vital Signs Temp 36.6 C 11/16/19 05:55 Pulse 68 11/16/19 05:55 Resp 16 11/16/19 05:55 BP 115/60 11/16/19 05:55 Pulse Ox 96 11/16/19 05:23 Exam Statement: A physical exam was performed in the ER prior to admission to the unit by Dr. Louis Desouza MD. I accept that physical as correct/medical clearance for the inpatient physical exam. Results & Data Laboratory Results Laboratory Results - last 24 hr 11/16/19 11/16/19 11/16/19 01:29 01:29 01:29 WBC 7.45 RBC 5.10 Hgb 15.7 Hct 43.0 MCV 84.3 MCH 30.8 MCHC 36.5 H RDW Std Deviation 37.6 RDW Coeff of Karlo 12.3 Plt Count 241 MPV 10.1 Immature Gran % (Auto) 0.3 Neut % (Auto) 59.3 Lymph % (Auto) 32.5 Pacific % (Auto) 5.0 Eos % (Auto) 2.4 Baso % (Auto) 0.5 Immature Gran # (Auto) 0.02 Neut # (Auto) 4.42 Lymph # (Auto) 2.42 Pacific # (Auto) 0.37 Eos # (Auto) 0.18 Baso # (Auto) 0.04 Sodium 141 Potassium 3.6 Chloride 108 H Carbon Dioxide 29 Anion Gap 4.0 BUN 13 Creatinine 1.25 Est Cr Clr Drug Dosing 107.8 Est GFR ( Amer) 94.1 Est GFR (Non-Af Amer) 81.2 BUN/Creatinine Ratio 10.3 Glucose 94 Calcium 8.9 Total Bilirubin 0.6 AST 16 ALT 28 Alkaline Phosphatase 70 Total Protein 7.3 Albumin 3.8 Globulin 3.5 Albumin/Globulin Ratio 1.1 TSH 1.270 Urine Color Urine Appearance Urine pH Ur Specific [place] Urine Protein Urine Glucose (UA) Urine Ketones Urine Blood Urine Nitrite Urine Bilirubin Urine Urobilinogen Ur Leukocyte Esterase Urine WBC (Auto) Urine RBC (Auto) U Hyaline Cast (Auto) U Epithel Cells (Auto) Urine Bacteria (Auto) Salicylates < 1.7 L Urine Opiates Screen Ur Methadone, Qual Acetaminophen < 2 L Urine Barbiturates Ur Phencyclidine (PCP) U Amphetamin/Meth Scrn MDMA (Ecstasy) Screen U Benzodiazepines Scrn Ur Cocaine Metabolite U Marijuana (THC) Screen Ethyl Alcohol mg/dL 11/16/19 11/16/19 11/16/19 01:29 02:37 02:37 WBC RBC Hgb Hct MCV MCH MCHC RDW Std Deviation RDW Coeff of Karlo Plt Count MPV Immature Gran % (Auto) Neut % (Auto) Lymph % (Auto) Pacific % (Auto) Eos % (Auto) Baso % (Auto) Immature Gran # (Auto) Neut # (Auto) Lymph # (Auto) Pacific # (Auto) Eos # (Auto) Baso # (Auto) Sodium Potassium Chloride Carbon Dioxide Anion Gap BUN Creatinine Est Cr Clr Drug Dosing Est GFR ( Amer) Est GFR (Non-Af Amer) BUN/Creatinine Ratio Glucose Calcium Total Bilirubin AST ALT Alkaline Phosphatase Total Protein Albumin Globulin Albumin/Globulin Ratio TSH Urine Color Yellow Urine Appearance Turbid A Urine pH 7.5 Ur Specific [place] 1.022 Urine Protein Negative Urine Glucose (UA) Negative Urine Ketones Negative Urine Blood Negative Urine Nitrite Negative Urine Bilirubin Negative Urine Urobilinogen Negative Ur Leukocyte Esterase Negative Urine WBC (Auto) 0 Urine RBC (Auto) 0-4 U Hyaline Cast (Auto) 0 U Epithel Cells (Auto) 0-5 Urine Bacteria (Auto) Negative Salicylates Urine Opiates Screen Neg Ur Methadone, Qual Neg Acetaminophen Urine Barbiturates Neg Ur Phencyclidine (PCP) Neg U Amphetamin/Meth Scrn Neg MDMA (Ecstasy) Screen Neg U Benzodiazepines Scrn Neg Ur Cocaine Metabolite Neg U Marijuana (THC) Screen Neg Ethyl Alcohol mg/dL < 3.0
[2019-11-16] MEDS: NICOTINE POLACRILEX 2 MG GUM MT PRN ×4 (10:57→18:46)
[2019-11-16] MEDS: NICOTINE 21 MG/24 HR TDSY TD SCH (11:49)
[2019-11-16] MEDS ORDERED: MAGNESIUM HYDROXIDE SUSP 30 ML UDC PO PRN (12:02)
[2019-11-16] MEDS ORDERED: ALUMINUM/MAGNESIUM SUSP 30 ML UDC PO PRN (12:02)
[2019-11-16] MEDS ORDERED: SODIUM CHLORIDE 0.65% NA SOLN 45 ML (OCEAN) PRN (12:02)
[2019-11-16] MEDS ORDERED: ACETAMINOPHEN 325 MG TAB PO PRN (12:02)
[2019-11-16] MEDS ORDERED: BISMUTH SUBSALICYLATE PER ML OMNICELL CHARGE PO PRN (12:02)
[2019-11-16] MEDS: DIVALPROEX DELAY RELEASE 500 MG TAB PO SCH (21:23)
[2019-11-16] MEDS: DIVALPROEX DELAY RELEASE 250 MG TABEC PO SCH (21:23)
[2019-11-16] MEDS ORDERED: DIVALPROEX EXTENDED RELEASE 250 MG TABCR PO SCH (22:00)
[2019-11-17] MEDS: NICOTINE 21 MG/24 HR TDSY TD SCH (07:51)
[2019-11-17] MEDS: NICOTINE POLACRILEX 2 MG GUM MT PRN ×7 (07:52→21:43)
--- NOTE | 2019-11-17 13:55 | Psychiatric Progress Note ---
Date of Service November 17, 2019 Impression / Recommendations Impression 24-year-old male admitted voluntarily for inpatient psychiatric treatment on 11/16/2019. Patient was last admitted to our unit in 07/2017, and has continued with routine outpatient psychiatric follow-up since that time. Patient reports ongoing mood instability, with recent depressive symptoms and suicidal ideation. Patient does admit to improvement and stability of mood, consistency of sleep, and clarity of thought when he takes his psychiatric medication regimen consistently. He has been compliant with monthly Abilify Maintena injections; however is noncompliant with his prescription of valproic acid. We will focus attention during treatment on medication compliance and ways to improve outpatient support, while resuming valproic acid at 1250mg qHS. He was informed that stimulant medications or other substances with high-abuse potential are no longer being recommended as part of his treatment regimen. We will need to coordinate outpatient psychiatric follow-up with Halie and Dr. Mario. Will need to schedule family meeting with parents to discuss aftercare and discharge planning. Over the course of his hospitalization, patient will be encouraged to participate in group and recreational programming. At this time, inpatient psychiatric treatment is medically necessary due to reports of suicidal ideation, reported mood instability, and need to appropriately coordinate care with his outpatient providers prior to discharge. Patient is perceived to still be at acute risk of harm to self if he is discharged prematurely. Records from Neuropsychological Testing Dates 09/2017 - 11/2017 were Received and Reviewed: Pt seen for neuropsychological testing with Dr. Efrem Mario, Ph.D - with 5 testing dates from 09/2017 - 11/2017. Pt presented for evaluation accompanied by his mother - expressing desire to learn more about "my condition". Question was raised if patient meets criteria for ADHD. It is reported he had a history of psychiatric treatment, and there was desire to determine "anything that might have been missed in the context of his history of psychiatric treatment." Pt is reportedly "well-liked"; however was described as "absent-minded and diso rganized." Pt can reportedly become fixated on daily routines with challenges in transitions and bidirectional communication. Concern fro social anxiety with "low tolerance for socially demanding situations" was reported. Pt has, per mother, demonstrated defensiveness, argumentativeness, and oppositional behaviors in the past. Pt reportedly tends to mimic other's behavior and has difficulty reading social cues durign conversation. Pertinent historical information mentioned: Mother mentioned concern regarding attention-related symptoms in his childhood, that reportedly worsened during his transition to college. Pt received testing at age 7, and was found to be academically "gifted." Pt reportedly attended a private school in fourth and fifth grades, but began home schooling prison through his fifth-grade year. He continued in home schooling, eventually doubling up on his course load. Pt was accepted to [employer] at the age of 18y/o to study astrophysics. It was reported that patient's academic success has been in a "steady decline since that time." Parents reportedly sold their business in [place] to move to the area with the patient - with him then moving out due to ""behavioral problems at home." It is reported that patient's GPA went from a 3.2 to a 2.47 over the course of about 2 years. Pt also reportedly had difficulty maintaining basic ADLs and succeeding in independently living. OCD, ADHD and ASD are suspected by family. Pt did admit at time of evaluation to feeling his vision is "pixelated" at times and that he "hears a voice that is random in terms of timing and content." Family did agree that patient was functioning fairly well with medication regimen at the time. Past Medication Trials: clonidine, Depakote, Abilify Maintena, risperidone, and buspirone Diagnostic Impression/Recommendations: - Overall average performance is reported, with weakness in executive function (predominantly reduced flexibility), nonverbal delayed recall, and fine motor dexterity. - Diagnoses: ADHD, predominantly inattentive type; mild Autism Spectrum Disorder; Depression; Anxiety - Continue family support as needed; services through [employer] [facility] was reviewed. Encouraged to attend Asperger's support group through [employer]. Family counseling was also recommended. (1) Suicidal ideation: 11/16 - Admitted to a locked inpatient behavioral health unit, on q15 minute safety checks - Encourage medication initiation/adjustments as indicated - Encourage participation in group and recreational therapies - Gather collateral information from outpatient providers - Suggest family meeting to involve outpatient supports in safety planning - Arrange appropriate aftercare 11/17 - Pt denies SI today - Will still require family meeting and completion of a safety plan (2) Schizoaffective disorder, bipolar type: 11/16 - Current outpatient diagnosis is schizoaffective disorder, bipolar type - additional information provided by patient's outpatient psychiatric physician sales and marketing assistant indicates that he does meet criteria for a diagnosis of schizophrenia. Patient's case was reviewed over the phone with his outpatient psychiatric provider. - Medication compliance is historically poor; however, patient has reportedly done well on a combination of Abilify Maintena and valproic acid -we will suggest continuing this medication regimen with a focus of inpatient treatment being on ways to improve medication compliance. - Will encourage participation in group and recreational programming, utilization of one-to-one counseling as indicated/desired - Will encourage family meeting with parents in order to obtain collateral information and discuss aftercare and safety planning 11/17 - Continue monthly Abilify Maintena and HS dosing of valproic acid - will continue at 1,250mg at this time - Encourage group participation, as patient was largely isolative today - Pt reminded of current medication regimen - will need to check valproic acid level 11/21 - Encourage scheduling of a family meeting (3) Stimulant abuse: 11/16 - Pt did inform psychiatrist that he has been overusing his stimulant prescription. Patient states he has been taking as many as four 40mg Focalin a day in order to improve attention and concentration - Pt last filled #30 tabs on 11/08/2019 and states he ran out several days ago - he has consistently filled the prescription early for the past several months - This information was reviewed with outpatient psychiatric physician sales and marketing assistant, who is agreeable with recommendation that the medication be discontinued at this time. - Will ensure this information is passed along to other psychiatric providers as indicated 11/17 - Concerns discussed today in greater detail - patient aware that Focalin will not be continued during hospitalization and that we are not recommending stimulant medications after discharge - Encouraged ongoing conversation with outpatient psychiatric prescriber regarding concerns with attention and concentration: may be worth considering atomoxetine as a non-stimulant option - Both Fátima Walker PA-C and Dr. Calvert's offices were made aware of concerns (4) Anxiety: 11/16 - Pt reporting he has not had a panic attack in several months; feeling anxiety is decently controlled with coping strategies - Previous prescription for lorazepam #15 tabs on 09/07/2019 - no subsequent prescriptions filled - Given reported overuse of stimulant medications, and contraindication with current daily alcohol use - would not suggest patient continue the medication given misuse of other controlled substances - Care coordinated with [place]; will also fax to Dr. Calvert as patient had indicated he may have been planning to switch providers - At this time, substances with abuse potential are not recommended as patient of patient medication recommendation 11/17 - Encourage engagement in group and recreational programming - Use of prn hydroxyzine for acute anxiety (5) Fibromyalgia: 11/16 - Historical diagnosis from 2017 H&P - Pt was previously prescribed gabapentin, no longer taking - Pt states he has not been compliant with medications or outpatient follow- up - Not a primary focus of treatment at this time, recommendation would be as needed follow-up with outpatient PCP (6) Absence seizure: 11/16 - Historical diagnosis from 2017 H&P; though patient denies seizure disorder - As of 2016 admission, patient had denied outpatient neurological follow-up (7) Alcohol abuse: 11/16 - Pt admits to consuming as many as 3 beer daily for several months; having recently presented to the ED after taking an excess of prescribed medications in combination with alcohol - For this reason, continued use of medications with abuse potential is not recommended. Pt was informed he would not be provided with Focaling or lorazepam during his admission -Brief intervention was offered and accepted Intervention was greater than 5 min in length. Brief interventions include: 1. Assess Readiness to Quit, 2. Advise: Help Patient to Reduce or Abstain from Alcohol, 3. Agree: Set Specific, Feasible Goals, 4. Assist: Anticipate barriers, Problem-Solving Solutions. Social work to 5. Arrange: Referrals to appropriate treatment. Summary of intervention: The patient is in precontemplation stage with regards to transtheoretical model of change. The patient is advised to decrease alcohol consumption due to depressant effects and risk of interactions with prescription medications. The patient was advised of recommendations for abstinence from alcohol and other abusable substances and to attend substance abuse treatment at discharge, and will be provided with recovery materials to continue to education self on how to cope with their condition without drinking. Inventory Assets Strengths: Intelligence; current psychiatric prescribers; support of mothers Needs: Consistency with medication; coordinate of care with outpatient providers Risk Factors Assessment Male: Yes : Yes Do You Have Access To A Gun?: No Mental Health Diagnoses: Yes Substance Use Disorders: Yes (alcohol abuse; over-using stimulant) Previous Attempt: Yes Previous Psychiatric Hospitalization: Yes Hopelessness: Yes Smoker: Yes Protective Factors Assessment Quaker Beliefs: No : No Responsible for Young Children: No Employed: No Supportive Family: Yes Interval History Identifying Information JEFFERSON DUMAS is a 24-year-old M who currently lives in [place] in an apartment with two roommates. Parents reportedly live locally as well. Pt was admitted on 11/16/19 05:11 on a 201 voluntary commitment for worsening depression and suicidal ideation. Denied specific plan, but does have two prior suicide attempts and was reportedly unable to contract for safety outside of the inpatient setting. Chief Complaint "Pretty good today. Just sleepy." Review of Systems Notes Constitutional: reports ongoing fatigue Cardiovascular: denied Respiratory: denied Gastrointestinal: denied Neurological: reports ongoing difficulty with focus Psychiatric: denies symptoms other than stated above Total of at least 10 systems reviewed, pertinent positives as above and in HPI. Sleep Information Total Hours of Sleep: 6.5 Sleep Comments: pt on q-15 minute checks Meal Information Percent Meal Consumed - Breakfast: 100 Percent Meal Consumed - Lunch: 25 Percent Meal Consumed - Dinner: 100 Subjective Subjective Patient was seen & assessed and interval progress reviewed with treatment team. Staff report the patient informed his parents of his psychiatric admission last evening. He was compliant with psychiatric medications currently prescribed. Patient was seen today to assess progress since admission. He provides verbal consent for Marialuisa Villa PA-C to observe today's encounter. Patient states that his mood overall is "pretty good", but does admit that he is feeling "sleepy" today. He does admit to sleeping for most of the morning, but has attended the later morning and afternoon groups. Patient denies side effects related to resuming home dosage of valproic acid last evening. Patient does feel as though his mood is "maybe a little better", and he admits to rating his mood a 7/10 and "happy" this morning. Patient does admit that he feels somewhat uncomfortable on the unit, as "I miss my normal routine." He does state that his parents are planning to visit later this evening, and is willing for staff to schedule a family meeting sometime this week. Patient is now stating that he had taken his valproic acid for about 2 days prior to his admission, stating "I realized my mood was not good, but I think I caught it too late." Patient did inquire about his projected length of stay, but did not verbalize any objections to the 5 to 7-day estimate. Patient denies suicidal ideation at this time. He denies other needs or concerns today. Physical Exam Psychiatric Orientation: alert, oriented x 3 and + guarded (Superficially cooperative) Apperance: appropriately dressed, + disheveled (Hair is unkempt, somewhat significant dandruff visualized) and appeared stated age Eye Contact: + fair eye contact (Prolonged episodes of staring at floor) Motor Behavior: steady gait and station and no abnormal motor movements Speech: normal rate/rhythm/volume of speech Affect: + blunted affect; + mood not congruent with affect Mood: no depressed mood ("Happy" and "pretty good") Thought Process: goal directed thought process, clear/coherent thought process and thought association intact Thought Content: reality based without delusions; no hopelessness and no worthlessness Suicidal Thoughts: denies suicidal thoughts and denies suicidal intent Homicidal Thoughts: denies homicidal thoughts Hallucinations: no auditory hallucinations and no visual hallucinations Cognition: attention grossly intact and language grossly intact Estimated Intelligence: + above average estimated intelligence Insight: + impaired insight Judgement: + fair judgement Vital Signs (Past 24 Hours) Last Vital Signs Temp 36.4 C L 11/17/19 07:08 Pulse 90 11/17/19 07:09 Resp 18 11/17/19 07:08 BP 105/70 11/17/19 07:09 Pulse Ox 96 11/16/19 05:23 Results & Data Current Inpatient Medications Current Inpatient Medications: Current Inpatient Medications Acetaminophen (Tylenol) 650 mg PO Q4H PRN PRN Reason: Headache or Minor Fever Stop: 12/16/19 12:01 Al Hydrox/Mg Hydrox/Simethicone (Maalox) 30 ml PO Q4H PRN PRN Reason: GI Upset Stop: 12/16/19 12:01 Aripiprazole (Abilify Maintena Kit) 400 mg IM Q28D LEODAN Stop: 12/29/19 08:59 Bismuth Subsalicylate (Kaopectate) 15 ml PO PRN PRN PRN Reason: Loose Stool Stop: 12/16/19 12:01 Divalproex Sodium (Depakote Delay Release) 250 mg PO QPM LEODAN Stop: 12/16/19 20:59 Last Admin: 11/16/19 21:23 Dose: 250 mg Documented by: Divalproex Sodium (Depakote Delay Release) 1,000 mg PO QPM LEODAN Stop: 12/16/19 20:59 Last Admin: 11/16/19 21:23 Dose: 1,000 mg Documented by: Hydroxyzine HCl (Vistaril) 50 mg PO HSZ PRN PRN Reason: Insomnia Stop: 12/16/19 12:01 Hydroxyzine HCl (Vistaril) 25 mg PO Q4H PRN PRN Reason: Anxiety Stop: 12/16/19 12:01 Magnesium Hydroxide (Milk Of Magnesia) 30 ml PO DAILY PRN PRN Reason: Constipation Stop: 12/16/19 12:01 Miscellaneous (Remove Nicoderm Patch) 1 ea N/A DAILY@0859 [facility] Stop: 12/17/19 08:58 Last Admin: 11/17/19 07:52 Dose: 1 ea Documented by: Nicotine (Nicoderm Cq) 21 mg TD QAM [facility] Stop: 12/16/19 10:44 Last Admin: 11/17/19 07:51 Dose: 21 mg Documented by: Nicotine Polacrilex (Nicorette 2mg) 1 piece MT PRN PRN PRN Reason: nicotine cravings Stop: 12/16/19 10:26 Last Admin: 11/17/19 13:12 Dose: 1 piece Documented by: Sodium Chloride ([place] Nasal) 1 - 2 sprays NA PRN PRN PRN Reason: Nasal Dryness/Congestion Stop: 12/16/19 12:01 Mental Health & Subst Abuse Tx Psychiatrist Name of Psychiatrist: Halie Parsons Psychiatrist's Date of Appointment with Psychiatrist: 11/29/19 Psychiatric Appointment Comment: 1932 [facility] [place] Therapist Name of Therapist: [facility] - Dr. Dos Santos Therapist's Date of Therapist Appointment: 11/22/19 Time of Therapist Appointment: 6:00 p.m. Therapy Appointment Comment: [address] [facility], [place] [id number] [employer] Machine Feeder Name of Raw Stock Machine Feeder: Denies/None Post Discharge Appointments Primary Care Physician Name Of Family Doctor: Lor Webb Primary Care Provider Appointment Comment: Nahum Garrison PA Contact Information Discharge Discharge Address: [address] [place] [address], [place]
[2019-11-17] MEDS: DIVALPROEX DELAY RELEASE 500 MG TAB PO SCH (21:07)
[2019-11-17] MEDS: DIVALPROEX DELAY RELEASE 250 MG TABEC PO SCH (21:07)
[2019-11-18] MEDS: NICOTINE 21 MG/24 HR TDSY TD SCH (09:35)
[2019-11-18] MEDS: NICOTINE POLACRILEX 2 MG GUM MT PRN ×7 (09:35→20:43)
--- NOTE | 2019-11-18 13:19 | Psychiatric Progress Note ---
Date of Service November 18, 2019 Impression / Recommendations Impression 24-year-old male admitted voluntarily for inpatient psychiatric treatment on 11/16/2019. Patient was last admitted to our unit in 07/2017, and has continued with routine outpatient psychiatric follow-up since that time. Patient reports ongoing mood instability, with recent depressive symptoms and suicidal ideation. Patient does admit to improvement and stability of mood, consistency of sleep, and clarity of thought when he takes his psychiatric medication regimen consistently. He has been compliant with monthly Abilify Maintena injections; however is noncompliant with his prescription of valproic acid. We will focus attention during treatment on medication compliance and ways to improve outpatient support, while resuming valproic acid at 1250mg qHS. Valproic acid level ordered for evening of 11/20. He has been informed that stimulant medications or other substances with high-abuse potential are no longer being recommended as part of his treatment regimen. Outpatient appointments coordinated with Halie and Dr. Mario. Involved parents in a family meeting with parents to discuss aftercare and safety planning. Over the course of his hospitalization, patient will be encouraged to participate in group and recreational programming. At this time, inpatient psychiatric treatment is medically necessary due to reports of suicidal ideation, reported mood instability, and need to appropriately coordinate care with his outpatient providers prior to discharge. Patient is perceived to still be at acute risk of harm to self if he is discharged prematurely. (1) Suicidal ideation: 11/16 - Admitted to a locked inpatient behavioral health unit, on q15 minute safety checks - Encourage medication initiation/adjustments as indicated - Encourage participation in group and recreational therapies - Gather collateral information from outpatient providers - Suggest family meeting to involve outpatient supports in safety planning - Arrange appropriate aftercare 11/17 - Pt denies SI today - Will still require family meeting and completion of a safety plan 11/18 - Denies SI today - Family meeting held with parents (2) Schizoaffective disorder, bipolar type: 11/16 - Current outpatient diagnosis is schizoaffective disorder, bipolar type - additional information provided by patient's outpatient psychiatric physician video production assistant indicates that he does meet criteria for a diagnosis of schizophrenia. Patient's case was reviewed over the phone with his outpatient psychiatric provider. - Medication compliance is historically poor; however, patient has reportedly done well on a combination of Abilify Maintena and valproic acid -we will suggest continuing this medication regimen with a focus of inpatient treatment being on ways to improve medication compliance. - Will encourage participation in group and recreational programming, utilization of one-to-one counseling as indicated/desired - Will encourage family meeting with parents in order to obtain collateral information and discuss aftercare and safety planning 11/17 - Continue monthly Abilify Maintena and HS dosing of valproic acid - will continue at 1,250mg at this time - Encourage group participation, as patient was largely isolative today - Pt reminded of current medication regimen - will need to check valproic acid level 11/21 - Encourage scheduling of a family meeting 11/18 - Continue current medication regimen; patient reporting improvement in mood - More interactive today, out of bed more consistently and attending group programming - Family meeting held with parents today: discussed academics, medication compliance, and sleep concerns - Encouraged use of hydroxyzine as needed for anxiety/sleep at this time (3) Stimulant abuse: 11/16 - Pt did inform psychiatrist that he has been overusing his stimulant prescription. Patient states he has been taking as many as four 40mg Focalin a day in order to improve attention and concentration - Pt last filled #30 tabs on 11/08/2019 and states he ran out several days ago - he has consistently filled the prescription early for the past several months - This information was reviewed with outpatient psychiatric physician video production assistant, who is agreeable with recommendation that the medication be discontinued at this time. - Will ensure this information is passed along to other psychiatric providers as indicated 11/17 - Concerns discussed today in greater detail - patient aware that Focalin will not be continued during hospitalization and that we are not recommending stimulant medications after discharge - Encouraged ongoing conversation with outpatient psychiatric prescriber regarding concerns with attention and concentration: may be worth considering atomoxetine as a non-stimulant option - Both Ftáima Walker PA-C and Dr. Calvert's offices were made aware of concerns (4) Anxiety: 11/16 - Pt reporting he has not had a panic attack in several months; feeling anxiety is decently controlled with coping strategies - Previous prescription for lorazepam #15 tabs on 09/07/2019 - no subsequent prescriptions filled - Given reported overuse of stimulant medications, and contraindication with current daily alcohol use - would not suggest patient continue the medication given misuse of other controlled substances - Care coordinated with [facility]; will also fax to Dr. Calvert as patient had indicated he may have been planning to switch providers - At this time, substances with abuse potential are not recommended as patient of patient medication recommendation 11/17 - Encourage engagement in group and recreational programming - Use of prn hydroxyzine for acute anxiety (5) Fibromyalgia: 11/16 - Historical diagnosis from 2017 H&P - Pt was previously prescribed gabapentin, no longer taking - Pt states he has not been compliant with medications or outpatient follow- up - Not a primary focus of treatment at this time, recommendation would be as needed follow-up with outpatient PCP (6) Absence seizure: 11/16 - Historical diagnosis from 2017 H&P; though patient denies seizure disorder - As of 2017 admission, patient had denied outpatient neurological follow-up (7) Alcohol abuse: 11/16 - Pt admits to consuming as many as 3 beer daily for several months; having recently presented to the ED after taking an excess of prescribed medications in combination with alcohol - For this reason, continued use of medications with abuse potential is not recommended. Pt was informed he would not be provided with Focaling or melanie myaorga during his admission -Brief intervention was offered and accepted Intervention was greater than 5 min in length. Brief interventions include: 1. Assess Readiness to Quit, 2. Advise: Help Patien t to Reduce or Abstain from Alcohol, 3. Agree: Set Specific, Feasible Goals, 4. Assist: Anticipate barriers, Problem-Solving Solutions. Social work to 5. Arrange: Referrals to appropriate treatment. Summary of intervention: The patient is in precontemplation stage with regards to transtheoretical model of change. The patient is advised to decrease alcohol consumption due to depressant effects and risk of interactions with prescription medications. The patient was advised of recommendations for abstinence from alcohol and other abusable substances and to attend substance abuse treatment at discharge, and will be provided with recovery materials to continue to education self on how to cope with their condition without drinking. Inventory Assets Strengths: Intelligence; current psychiatric prescribers; support of mothers Needs: Consistency with medication; coordinate of care with outpatient providers Risk Factors Assessment Male: Yes : Yes Do You Have Access To A Gun?: No Mental Health Diagnoses: Yes Substance Use Disorders: Yes (alcohol abuse; over-using stimulant) Previous Attempt: Yes Previous Psychiatric Hospitalization: Yes Hopelessness: Yes Smoker: Yes Protective Factors Assessment Hoahaoism Beliefs: No : No Responsible for Young Children: No Employed: No Supportive Family: Yes Interval History Identifying Information JEFFERSON DUMAS is a 24-year-old M who currently lives in [place] in an apartment with two roommates. Parents reportedly live locally as well. Pt was admitted on 11/16/19 05:11 on a 201 voluntary commitment for worsening depression and suicidal ideation. Denied specific plan, but does have two prior suicide attempts and was reportedly unable to contract for safety outside of the inpatient setting. Chief Complaint "I am feeling good." Review of Systems Notes Constitutional: reports ongoing fatigue Cardiovascular: denied Respiratory: denied Gastrointestinal: denied Neurological: denied Psychiatric: denies symptoms other than stated above Total of at least 10 systems reviewed, pertinent positives as above and in HPI. Sleep Information Total Hours of Sleep: 7.25 Sleep Comments: pt on q-15 minute checks Meal Information Percent Meal Consumed - Breakfast: 100 Percent Meal Consumed - Lunch: 90 Percent Meal Consumed - Dinner: 100 Subjective Subjective Patient was seen & assessed and interval progress reviewed with nursing and social work. Staff report the patient slept most of the day yesterday, and demonstrated rather concrete thinking with flat affect. He did have a visit from his father last evening, and is anticipated to have a family meeting with his parents this afternoon. Pt was seen today to assess progress since admission. Pt states that he is feeling "good" today. He states that he is feeling much improved with regard to mood, and is less tired today. Pt states that his family meeting went well, with discussion of topics of school, finances, and sleep. Pt states that he is planning to wait to enroll in classes until fall. He states that he is planning to continue conversations with his parents regarding school and medication compliance. When asked what techniques he has compiled to improve medication compliance, he states his parents are going to be checking in more frequently. He also states, "Now that I see what a difference it makes to be on medications, I know I don't want to feel like that again." He states that he is planning to have additional support from a major case detective, and will be willing to explore [place] medication management if necessary. He denies continued suicidal ideation, as well as other needs or concerns at this time. Physical Exam Psychiatric Orientation: alert, oriented x 3 and cooperative (and pleasant) Apperance: appropriately dressed, appropriately groomed and appeared stated age Eye Contact: good eye contact Motor Behavior: steady gait and station and no abnormal motor movements Speech: normal rate/rhythm/volume of speech Affect: + constricted affect (not appearing overtly depressed/anxious) Mood: no depressed mood ("good") Thought Process: goal directed thought process, clear/coherent thought process and thought association intact Thought Content: reality based without delusions; no hopelessness and no worthlessness Suicidal Thoughts: denies suicidal thoughts and denies suicidal intent Homicidal Thoughts: denies homicidal thoughts Hallucinations: no auditory hallucinations and no visual hallucinations Cognition: attention grossly intact and language grossly intact Insight: + fair insight Judgement: + fair judgement Vital Signs (Past 24 Hours) Last Vital Signs Temp 36.4 C L 11/18/19 06:55 Pulse 57 L 11/18/19 06:56 Resp 16 11/18/19 06:55 BP 121/81 11/18/19 06:56 Pulse Ox 96 11/16/19 05:23 Results & Data Current Inpatient Medications Current Inpatient Medications: Current Inpatient Medications Acetaminophen (Tylenol) 650 mg PO Q4H PRN PRN Reason: Headache or Minor Fever Stop: 12/16/19 12:01 Al Hydrox/Mg Hydrox/Simethicone (Maalox) 30 ml PO Q4H PRN PRN Reason: GI Upset Stop: 12/16/19 12:01 Aripiprazole (Abilify Maintena Kit) 400 mg IM Q28D LEODAN Stop: 12/29/19 08:59 Bismuth Subsalicylate (Kaopectate) 15 ml PO PRN PRN PRN Reason: Loose Stool Stop: 12/16/19 12:01 Divalproex Sodium (Depakote Delay Release) 250 mg PO QPM LEODAN Stop: 12/16/19 20:59 Last Admin: 11/17/19 21:07 Dose: 250 mg Documented by: Divalproex Sodium (Depakote Delay Release) 1,000 mg PO QPM LEODAN Stop: 12/16/19 20:59 Last Admin: 11/17/19 21:07 Dose: 1,000 mg Documented by: Hydroxyzine HCl (Vistaril) 50 mg PO HSZ PRN PRN Reason: Insomnia Stop: 12/16/19 12:01 Last Admin: 11/17/19 21:45 Dose: 50 mg Documented by: Hydroxyzine HCl (Vistaril) 25 mg PO Q4H PRN PRN Reason: Anxiety Stop: 12/16/19 12:01 Magnesium Hydroxide (Milk Of Magnesia) 30 ml PO DAILY PRN PRN Reason: Constipation Stop: 12/16/19 12:01 Miscellaneous (Remove Nicoderm Patch) 1 ea N/A DAILY@[id number] [facility] Stop: 12/17/19 08:58 Last Admin: 11/18/19 09:36 Dose: 1 ea Documented by: Nicotine (Nicoderm Cq) 21 mg TD QAM [facility] Stop: 12/16/19 10:44 Last Admin: 11/18/19 09:35 Dose: 21 mg Documented by: Nicotine Polacrilex (Nicorette 2mg) 1 piece MT PRN PRN PRN Reason: nicotine cravings Stop: 12/16/19 10:26 Last Admin: 11/18/19 11:03 Dose: 1 piece Documented by: Sodium Chloride ([place] Nasal) 1 - 2 sprays NA PRN PRN PRN Reason: Nasal Dryness/Congestion Stop: 12/16/19 12:01 Mental Health & Subst Abuse Tx Psychiatrist Name of Psychiatrist: Halie Parsons Psychiatrist's Date of Appointment with Psychiatrist: 11/29/19 Psychiatric Appointment Comment: [facility] Therapist Name of Therapist: [facility] - Dr. Dos Santos Therapist's Date of Therapist Appointment: 11/22/19 Time of Therapist Appointment: 6:00 p.m. Therapy Appointment Comment: [address] [place] [address] Transfer Car Operator Name of Transfer Car Operator: [employer] Phone Number for Transfer Car Operator: [phone] Date of Appointment with Transfer Car Operator: 12/01/19 Time of Appointment with Transfer Car Operator: 10:00am Post Discharge Appointments Primary Care Physician Name Of Family Doctor: Lor Webb Primary Care Provider Appointment Comment: Nahum Garrison PA Contact Information Discharge Discharge Address: [address] [place] [address]
[2019-11-18] MEDS: DIVALPROEX DELAY RELEASE 250 MG TABEC PO SCH (20:42)
[2019-11-18] MEDS: DIVALPROEX DELAY RELEASE 500 MG TAB PO SCH (20:42)
[2019-11-19] MEDS: NICOTINE 21 MG/24 HR TDSY TD SCH (08:25)
[2019-11-19] MEDS: NICOTINE POLACRILEX 2 MG GUM MT PRN ×3 (08:28→13:56)
[2019-11-19] MEDS ORDERED: DESTROY THIS MEDICATION ONE (12:43)
--- NOTE | 2019-11-19 13:47 | Discharge Summary ---
Date of Service November 19, 2019 History of Present Illness Sudhir Landry (Alex) is a 24-year-old male admitted voluntarily for inpatient psychiatric treatment after presenting to the ED with reports of worsening depression and suicidal ideation. Patient states that he was transported to the emergency room by a friend, after disclosing his depressive symptoms with thoughts to end his life. Patient did deny a specific plan; however, has 2 prior suicide attempts by overdose and was unable to contract for safety outside of the inpatient hospital setting. Of additional concern is the fact that patient presented to the emergency room on 10/05/2019 stating that he had overused Adderall and lorazepam while intoxicated, as he was feeling anxious. Patient denied that this action was done in an attempt to end his life, and was discharged home after medical clearance. He was most recently hospitalized on our unit in 07/2017, and denied inpatient psychiatric hospitalizations since that time. He is continue to follow at [facility] for outpatient psychiatric treatment. It is unclear if he is presently following with an outpatient therapist. Patient was cooperative with psychiatric evaluation. He provided verbal consent for Marialuisa Villa PA-C to observe today's encounter. He does state that "I was really depressed, and kind of having suicidal thoughts. I should have seen it coming." Patient states that he has a history of "bipolar disorder", and that the transitions from one mood state to another are generally difficult for him. Patient states that especially with transition from "manic to depressed" is concerning as " I still have a lot of energy, but the mindset of a depressed person." Patient states that he was concerned about the potential for him to act on suicidal thoughts, which led to him reaching out to a friend and coming to the emergency room for further evaluation. Patient describes a "manic" state as "energetic, more productive, but never destructive. I find I can do schoolwork 4 days." The patient states that he has gained a "better understanding of the diagnosis" over time, and is better able to manage the symptoms of these "manic phases." Patient does state that when he is in more of a depressed mood, he is "still energetic, but less productive." Patient states that when his mood is lower, he has limited ability to fall and remain asleep. Appetite is often reduced and depressed phases as well. At this time, patient does indicate additional stressors related to school and financial concerns. Patient states that he is also experiencing increased anxiety related to his current relationship. Patient states that the symptoms are well managed on his current medication regimen; however, he does admit to running out of most of his medications recently. Patient states that he was happy to have been able to receive a medication in an injectable form, as he has difficulty remaining compliant with his oral medications. Patient informs this provider that he has not taken his Depakote in several days; however, history suggests it may have been several months since he last received this medication. Patient states that Focalin has been prescribed for diagnosis of ADHD, though he questions if he may also have narcolepsy based on his chronic fatigue. Patient states that he utilizes as needed lorazepam for acute anxiety, but has been out of this medication as well. Patient does admit to episodes of paranoia, where patient may believe "someone is trying to hurt me, or there is a specific task that I need to complete but I am never sure why." Patient also admits to auditory hallucinations, in which he hears "the voices of my friends." Patient states that the hallucinations are not commanding in nature, but rather will state his name or whisper words to him. He denies visual hallucinations at this time. Patient states that he does consume tobacco via vaping, stating his consumption is the equivalent of a pack per day. Patient also admits to "close to daily" alcohol intake. He admits to consuming 1-3 beers regularly with a close friend. Pt denies history of withdrawal symptoms, and denies history of formal drug or alcohol treatment in the past. Pt denies HI, SIB, OCD, PTSD, eating disorder, and other specific psychiatric symptoms. Physical Exam Psychiatric Orientation: alert and oriented x 3 Apperance: appropriately dressed and appropriately groomed Eye Contact: good eye contact Motor Behavior: steady gait and station and no abnormal motor movements Right leg course tremors. Typical and expected per patient. Speech: normal rate/rhythm/volume of speech Affect: euthymic affect "Good." Thought Process: goal directed thought process and linear/logical thought process Thought Content: reality based without delusions Suicidal Thoughts: denies suicidal thoughts Homicidal Thoughts: denies homicidal thoughts Hallucinations: no auditory hallucinations Cognition: recent memory grossly intact, remote memory grossly intact and language grossly intact Estimated Intelligence: + above average estimated intelligence Insight: + fair insight Judgement: + fair judgement Vital Signs (Past 24 Hours) Last Vital Signs Temp 36.6 C 11/19/19 06:00 Pulse 65 11/19/19 06:00 Resp 16 11/19/19 06:00 BP 114/78 11/19/19 06:00 Pulse Ox 96 11/16/19 05:23 Principal Diagnosis Bipolar Disorder Psychiatric Data During the course of hospitalization the patient was offered various modalities of psychiatric treatment and education. These included individual, group, activity, and chemotherapy. The patient acknowledged that he had been nonadherent with his outpatient medications, most specifically Depakote. We restarted Depakote at his prescribed outpatient dosage of 1250 mg daily. By day 3 the patient reported substantial improvement in his mood and commented that he sometimes forgets how much better he feels when he takes his medications as prescribed. He acknowledges that he has a tendency to independently adjust medication dosages and, at times, he may take substantially more medication than is prescribed in an effort to address psychiatric symptoms. At other times, he may take substantially less than what is prescribed, or even discontinue a medication, also entirely on his own without consulting the prescribing physician. Within this context, we focused on the inadvisability of this and emphasized that this is very risky, both in terms of developing toxicity, as well as losing therapeutic benefit. The patient convincingly expressed insight into this, and said that he realizes that he needs to discuss medication changes with the prescribing provider before making any changes. He also says that he realizes that sometimes he simply needs to "wait" if he is having what he refers to as a "bad day." He acknowledges that he was having suicidal thoughts at [facility], but says that he had no associated plan and, although he did not have actual intent, his concern was that he would develop suicidal intent. 1 of the foci of treatment involved helping the patient develop a safety plan for community reentry. He has a number of supports in the community, including his parents, both of whom reportedly live very nearby, as well as his outpatient providers. The patient consistently we are ported that his suicidal thoughts had resolved quickly after his admission and that he has has not had a recurrence of these thoughts. In addition, no vegetative symptoms of depression were no evidence and he also did not demonstrate any symptoms consistent with nelia or hypomania. No psychotic features were identified in the patient's thought content, and he reports that he has not been experiencing any perceptual disturbances. On the day of discharge, the patient was assessed as being sufficiently stable psychiatrically, and sufficiently competent cognitively to be able to safely and successfully return to the community for continued psychiatric treatment on an outpatient basis. Day of Discharge Assessment On the day of discharge, the patient was found to be appropriately dressed and groomed, and fully cooperative with the discharge examination. He describes his mood as "good," and although his affect was initially somewhat anxious, he quickly became euthymic. He smiles appropriately on a number of occasions during the interview and was reasonably well animated. The patient's speech was delivered at a normal rate and rhythm. He demonstrated a course tremor in his lower extremity throughout most of the interview, and the patient explains that this is typical for him because he tends to be restless when seated. The patient's thought processes demonstrated tight associations. His thought content was devoid of any delusional material and was reality based. He also reports that he has not experienced any perceptual disturbances and there has been no evidence that the patient is, in fact, responding to internal stimuli. He convincingly reports that he has not been having any suicidal thoughts and clarifies that although he was having some intrusive thoughts of self-harm prior to admission, these thoughts were not associated with any specific plan or intent and they resolved fairly quickly after admission. He is future oriented, describes his plans for school and beyond. Similarly, the patient reports that he is not having any thoughts of causing physical harm to the person or property of others. His intelligence is above average and he is fully oriented. The patient is also conversant with his community safety plan. Transition of Care Transition Of Care Record: was reviewed with the patient Advance Directives Advance Directives Information Provided: Yes Advance Directives: No Mental Health Advance Directive: No Advance Directives on File: No Living Will: No Power of Neuroradiologist: No Advance Directives Reason:: Declines as Mental Health Visit. Risk Factors Assessment Male: Yes : Yes Do You Have Access To A Gun?: No Health Problems: No Mental Health Diagnoses: Yes Substance Use Disorders: Yes (alcohol abuse; over-using stimulant) Previous Attempt: Yes (The patient says that he has a history of taking "too much medicine," but says that these have been efforts to control symptoms and have not been related to any suicide intent) Previous Psychiatric Hospitalization: Yes Hopelessness: Yes Smoker: Yes Protective Factors Assessment Yazidism Beliefs: No : No Responsible for Young Children: No Employed: No Stable Relationships: Yes Supportive Family: Yes Good Rapport with Provider: Yes Absence of Any Risk Factors Above: No Tobacco Cessation at Discharge Tobacco Cessation Medication Prescribed at Discharge: Offered & Prescribed Antipsychotic Medications Patient carries a diagnosis of bipolar disorder and has a history of recurrent psychotic features. Total Time Total Time Spent: Greater Than 30 Minutes Total Time Includes: Examination of the patient, Discharge Planning, Medication Reconciliation and Communication with other providers Discharge Data Lab Results 11/16/19 11/16/19 11/16/19 01:29 01:29 01:29 WBC 7.45 RBC 5.10 Hgb 15.7 Hct 43.0 MCV 84.3 MCH 30.8 MCHC 36.5 H RDW Std Deviation 37.6 RDW Coeff of Karlo 12.3 Plt Count 241 MPV 10.1 Immature Gran % (Auto) 0.3 Neut % (Auto) 59.3 Lymph % (Auto) 32.5 Panola % (Auto) 5.0 Eos % (Auto) 2.4 Baso % (Auto) 0.5 Immature Gran # (Auto) 0.02 Neut # (Auto) 4.42 Lymph # (Auto) 2.42 Panola # (Auto) 0.37 Eos # (Auto) 0.18 Baso # (Auto) 0.04 Sodium 141 Potassium 3.6 Chloride 108 H Carbon Dioxide 29 Anion Gap 4.0 BUN 13 Creatinine 1.25 Est Cr Clr Drug Dosing 107.8 Est GFR ( Amer) 94.1 Est GFR (Non-Af Amer) 81.2 BUN/Creatinine Ratio 10.3 Glucose 94 Calcium 8.9 Total Bilirubin 0.6 AST 16 ALT 28 Alkaline Phosphatase 70 Total Protein 7.3 Albumin 3.8 Globulin 3.5 Albumin/Globulin Ratio 1.1 TSH 1.270 Urine Color Urine Appearance Urine pH Ur Specific Mena Urine Protein Urine Glucose (UA) Urine Ketones Urine Blood Urine Nitrite Urine Bilirubin Urine Urobilinogen Ur Leukocyte Esterase Urine WBC (Auto) Urine RBC (Auto) U Hyaline Cast (Auto) U Epithel Cells (Auto) Urine Bacteria (Auto) Salicylates < 1.7 L Urine Opiates Screen Ur Methadone, Qual Acetaminophen < 2 L Urine Barbiturates Ur Phencyclidine (PCP) U Amphetamin/Meth Scrn MDMA (Ecstasy) Screen U Benzodiazepines Scrn Ur Cocaine Metabolite U Marijuana (THC) Screen Ethyl Alcohol mg/dL 11/16/19 11/16/19 11/16/19 01:29 02:37 02:37 WBC RBC Hgb Hct MCV MCH MCHC RDW Std Deviation RDW Coeff of Karlo Plt Count MPV Immature Gran % (Auto) Neut % (Auto) Lymph % (Auto) Panola % (Auto) Eos % (Auto) Baso % (Auto) Immature Gran # (Auto) Neut # (Auto) Lymph # (Auto) Panola # (Auto) Eos # (Auto) Baso # (Auto) Sodium Potassium Chloride Carbon Dioxide Anion Gap BUN Creatinine Est Cr Clr Drug Dosing Est GFR ( Amer) Est GFR (Non-Af Amer) BUN/Creatinine Ratio Glucose Calcium Total Bilirubin AST ALT Alkaline Phosphatase Total Protein Albumin Globulin Albumin/Globulin Ratio TSH Urine Color Yellow Urine Appearance Turbid A Urine pH 7.5 Ur Specific Mena 1.022 Urine Protein Negative Urine Glucose (UA) Negative Urine Ketones Negative Urine Blood Negative Urine Nitrite Negative Urine Bilirubin Negative Urine Urobilinogen Negative Ur Leukocyte Esterase Negative Urine WBC (Auto) 0 Urine RBC (Auto) 0-4 U Hyaline Cast (Auto) 0 U Epithel Cells (Auto) 0-5 Urine Bacteria (Auto) Negative Salicylates Urine Opiates Screen Neg Ur Methadone, Qual Neg Acetaminophen Urine Barbiturates Neg Ur Phencyclidine (PCP) Neg U Amphetamin/Meth Scrn Neg MDMA (Ecstasy) Screen Neg U Benzodiazepines Scrn Neg Ur Cocaine Metabolite Neg U Marijuana (THC) Screen Neg Ethyl Alcohol mg/dL < 3.0 Hospital Course (1) Suicidal ideation: 11/16 - Admitted to a locked inpatient behavioral health unit, on q15 minute safety checks - Encourage medication initiation/adjustments as indicated - Encourage participation in group and recreational therapies - Gather collateral information from outpatient providers - Suggest family meeting to involve outpatient supports in safety planning - Arrange appropriate aftercare 11/17 - Pt denies SI today - Will still require family meeting and completion of a safety plan 11/18 - Denies SI today - Family meeting held with parents 11/19 -The patient reports that his mood has improved to normal, and he continues to have no thoughts of suicide. -He clarifies that in the past he has sometimes taken more medications than have been prescribed, and on a couple instances has taken substantially more than prescribed. He notes that these have not been actual suicide attempt but, instead, efforts on his part to stop psychiatric symptoms, such as anxiety. -He does acknowledge that prior to admission he was having vague thoughts of suicide, without any associated plan or intent. He notes that he had come to the hospital because he was concerned that these thoughts might worsen and that he might come at some point, act on them. -Today, the patient is able to review his safety plan with this and seems to be fully conversant and prepared to apply the plan as needed. (2) Schizoaffective disorder, bipolar type: 11/16 - Current outpatient diagnosis is schizoaffective disorder, bipolar type - additional information provided by patient's outpatient psychiatric physician litigation assistant indicates that he does meet criteria for a diagnosis of schizophrenia. Patient's case was reviewed over the phone with his outpatient psychiatric provider. - Medication compliance is historically poor; however, patient has reportedly done well on a combination of Abilify Maintena and valproic acid -we will suggest continuing this medication regimen with a focus of inpatient treatment being on ways to improve medication compliance. - Will encourage participation in group and recreational programming, utilization of one-to-one counseling as indicated/desired - Will encourage family meeting with parents in order to obtain collateral information and discuss aftercare and safety planning 11/17 - Continue monthly Abilify Maintena and HS dosing of valproic acid - will continue at 1,250mg at this time - Encourage group participation, as patient was largely isolative today - Pt reminded of current medication regimen - will need to check valproic acid level 11/21 - Encourage scheduling of a family meeting 11/18 - Continue current medication regimen; patient reporting improvement in mood - More interactive today, out of bed more consistently and attending group programming - Family meeting held with parents today: discussed academics, medication compliance, and sleep concerns - Encouraged use of hydroxyzine as needed for anxiety/sleep at this time 11/19 -The patient was given a diagnosis of bipolar I disorder at the time of discharge. -He tells me that he is experiencing no side effects of his psychiatric medications. We again reviewed the material risks and anticipated benefits of Depakote and aripiprazole, and the patient asked several questions and indicated understanding. -Today, the patient reports that he is feeling better than he has in quite some time, and is able to draw a connection between his improved condition, his stable mood, and the fact that he is taking medications precisely as prescribed. (3) Stimulant abuse: 11/16 - Pt did inform psychiatrist that he has been overusing his stimulant prescription. Patient states he has been taking as many as four 40mg Focalin a day in order to improve attention and concentration - Pt last filled #30 tabs on 11/08/2019 and states he ran out several days ago - he has consistently filled the prescription early for the past several months - This information was reviewed with outpatient psychiatric physician litigation assistant, who is agreeable with recommendation that the medication be discontinued at this time. - Will ensure this information is passed along to other psychiatric providers as indicated 11/17 - Concerns discussed today in greater detail - patient aware that Focalin will not be continued during hospitalization and that we are not recommending stimulant medications after discharge - Encouraged ongoing conversation with outpatient psychiatric prescriber regarding concerns with attention and concentration: may be worth considering atomoxetine as a non-stimulant option - Both Fátima Walker PA-C and Dr. Calvert's offices were made aware of concerns 11/19 -Today, we reiterated that we are not recommending that the patient continue treatment with Focalin, given his history of misuse. He again confirmed that he had taken a 30 day supply of Focalin XR 40 mg tablets over the course of 5 days by taking 80 mg 3 times a day. He seems clearly able to understand that this was risky behavior, and he connects the fact that he was rendered quite anxious and unable to sleep with the fact that he was taking 6 times the prescribed dose. -The patient may meet criteria for ADHD, but given his history we would not advise continuing to treat it with stimulant medications. (4) Anxiety: 11/16 - Pt reporting he has not had a panic attack in several months; feeling anxiety is decently controlled with coping strategies - Previous prescription for lorazepam #15 tabs on 09/07/2019 - no subsequent prescriptions filled - Given reported overuse of stimulant medications, and contraindication with current daily alcohol use - would not suggest patient continue the medication given misuse of other controlled substances - Care coordinated with [facility]; will also fax to Dr. Calvert as patient had indicated he may have been planning to switch providers - At this time, substances with abuse potential are not recommended as patient of patient medication recommendation 11/17 - Encourage engagement in group and recreational programming - Use of prn hydroxyzine for acute anxiety 11/19 -Patient clarifies that he would prefer lorazepam to hydroxyzine, but notes that hydroxyzine has been effective in helping him manage anxiety. (5) Fibromyalgia: 11/16 - Historical diagnosis from 2016 H&P - Pt was previously prescribed gabapentin, no longer taking - Pt states he has not been compliant with medications or outpatient follow- up - Not a primary focus of treatment at this time, recommendation would be as needed follow-up with outpatient PCP 11/19 -Patient reports that he feels that his symptoms of fibromyalgia are largely under control at this point. (6) Absence seizure: 11/16 - Historical diagnosis from 2016 H&P; though patient denies seizure disorder - As of 2016 admission, patient had denied outpatient neurological follow-up 11/19 -We will continue to recommend that he follow through on recommended outpatient neurological follow-up. -Was also explained to the patient that a risk of stimulant medications can be in the lowering the seizure threshold in some persons. The patient indicated understanding (7) Alcohol abuse: 11/16 - Pt admits to consuming as many as 3 beer daily for several months; having recently presented to the ED after taking an excess of prescribed medications in combination with alcohol - For this reason, continued use of medications with abuse potential is not recommended. Pt was informed he would not be provided with Focaling or lorazepam during his admission -Brief intervention was offered and accepted Intervention was greater than 5 min in length. Brief interventions include: 1. Assess Readiness to Quit, 2. Advise: Help Patient to Reduce or Abstain from Alcohol, 3. Agree: Set Specific, Feasible Goals, 4. Assist: Anticipate barriers, Problem-Solving Solutions. Social work to 5. Arrange: Referrals to appropriate treatment. Summary of intervention: The patient is in precontemplation stage with regards to transtheoretical model of change. The patient is advised to decrease alcohol consumption due to depressant effects and risk of interactions with prescription medications. The patient was advised of recommendations for abstinence from alcohol and other abusable substances and to attend substance abuse treatment at discharge, and will be provided with recovery materials to continue to education self on how to cope with their condition without drinking. 11/19 -The patient was reminded at discharge that the use of alcohol can worsen mood symptoms, as well as interfere with psychiatric medications. Alcohol can also lower impulse control in persons who sometimes exercise bad judgment when it comes to taking medications. The patient indicated understanding and awareness. Mental Health & Subst Abuse Tx Psychiatrist Name of Psychiatrist: Halie Parsons Psychiatrist's Date of Appointment with Psychiatrist: 11/29/19 Time of Appointment with Psychiatrist: 2:15 p.m. Psychiatric Appointment Comment: [id number] [facility] Psychiatrist Release of Information: Obtained, Reviewed and Signed Therapist Name of Therapist: [facility] - Dr. Dos Santos Therapist's Date of Therapist Appointment: 11/22/19 Time of Therapist Appointment: 6:00 p.m. Therapy Appointment Comment: [address] [place] [address] Therapist Release of Information: Obtained, Reviewed and Signed Structural Steel Painter Name of Structural Steel Painter: [facility] - [place] Phone Number for Structural Steel Painter: [phone] Date of Appointment with Structural Steel Painter: 12/01/19 Time of Appointment with Structural Steel Painter: 10:00 am Case Management Appointment Comment: [phone] [facility], [address] Structural Steel Painter Release of Information: Obtained, Reviewed and Signed Post Discharge Appointments Primary Care Physician Name Of Family Doctor: [facility] Time of Appointment with PCP: Please follow up as needed Provider Appointment Comment: [phone] Chaney [facility] Primary Care Release of Information: Obtained, Reviewed and Signed Smoking Cessation Counseling Tobacco Cessation Medication Prescribed at Discharge: Offered & Prescribed Contact Information Discharge Discharge Address: [address] [place] [address] Discharge Plan Discharge Items Patient Disposition: Home - Self-Care Reason For Visit: BIPOLAR, DEPRESSION Discharge Diagnosis: Bipolar Disorder Activity: Resume your previous activity Non-emergency contact: Psychiatrist and Therapist Call non-emergency contact if: you have any medication questions and your symptoms worsen Follow-up/Referrals: PCP,NO [Primary Care Provider] - Diet: Regular Addtl Attending Provider Instructions: Abilify Injection 400 mg due on 11/29/19. Remember your safety plan. Remember the importance of taking your medication as prescribed. Pending Studies at Discharge: No Stand-Alone Forms: [facility], Smoking Cessation, Suicide Prevention Resources Medications and DC Order Prescriptions: New nicotine [Nicoderm CQ] 21 mg/24 hr Patch 24 Hour 21 mg transdermal QAM 14 Days Qty: 14 RF: 0 Abilify Maintena 400 mg Suspension,Extended Rel Recon 400 mg IM Q28D Qty: 3 RF: 0 divalproex 500 mg Tablet,Delayed Release (Dr/Ec) 1,000 mg PO QPM Qty: 60 RF: 0 divalproex 250 mg Tablet,Delayed Release (Dr/Ec) 250 mg PO QPM Qty: 30 RF: 0 hydroxyzine HCl 25 mg tablet 25 mg PO BID PRN (Reason: anxiety) Qty: 30 RF: 0 Discontinued divalproex [Depakote] 250 mg tablet,delayed release (DR/EC) 250 mg PO QPM RF: 0 divalproex [Depakote] 500 mg tablet,delayed release (DR/EC) 1,000 mg PO QPM RF: 0 lorazepam [Ativan] 1 mg tablet 1 mg PO DAILY PRN (Reason: Anxiety) RF: 0 Abilify Maintena 400 mg suspension,extended rel syring 400 mg IM MONTHLY RF: 0 dexmethylphenidate [Focalin XR] 40 mg capsule,ER biphasic 50-50 40 mg PO DAILY RF: 0 Discharge Orders: Discharge Order (Routine); Ordered 11/19/19 Ordered By: Matthew Conley Admission Data Admit Date/Time: 11/16/19 05:11 Attending Provider: Laura Patiño Admit Provider: Laura Patiño Primary Care Provider: PCP,NO Other Interventions: PSY Interdisciplinary Discharge Planning Last Done: 11/19/19 11:51 C[place] [address] D/C day mgmt > 30 min Patient Type Established History Expanded Problem Focused Exam Expanded Problem Focused Medical Decision Making Moderate Complexity Diagnoses Suicidal ideation R45.851 Schizoaffective disorder, bipolar type F25.0 Stimulant abuse F15.10 Anxiety F41.9 Fibromyalgia M79.7 Absence seizure G40.A09 Alcohol abuse F10.10 Time Spent (min) 60
[2019-11-29] MEDS ORDERED: ARIPIPRAZOLE 400 MG KIT IM SCH (09:00)
== END 2019-11-19 14:35 | disposition home or self-care (01) | DRG 885 ==
LOC: ED 00:50 → 3S 05:11